=== PATIENT | male | born 1955 | race Caucasian/White ===

== ENCOUNTER 2016-06-16 18:49 | Emergency (ER) | payer OTHER ==
[2016-06-16] MEDS ORDERED: NORVASC PO STA (19:10)
[2016-06-16] MEDS ORDERED: LOPRESSOR PO STA (19:11)
[2016-06-16 19:13] VITALS: BP 154/83; TEMP 99; BMI 34.0
[2016-06-16 19:25] LABS: BASOPHILS # (AUTO) 0.1 K/uL (0-0.2); BASOPHILS % (AUTO) 0.7 % (0.0-3.0); EOSINOPHILS # (AUTO) 0.3 K/ul (0.0-0.7); EOSINOPHILS % (AUTO) 2.8 % (0.0-7.0); HEMATOCRIT 50.1 % (42.0-52.0); HEMOGLOBIN 17.5 g/dl (14.0-18.0); IMMATURE GRANULOCYTE % (AUTO) 0.7 % (0.0-5.0); LYMPHOCYTES # (AUTO) 2.3 K/uL (0.60-3.4); LYMPHOCYTES % (AUTO) 23.4 (10.0-50.0); MEAN CORPUSCULAR HEMOGLOBIN 29.2 pg (27.0-31.0); MEAN CORPUSCULAR HGB CONC 34.9 (31.8-35.4); MEAN CORPUSCULAR VOLUME 83.6 fl (80.0-94.0); MONOCYTES # (AUTO) 0.8 K/uL (0.4-2.0); MONOCYTES % (AUTO) 7.7 (0-10); NEUTROPHILS # (AUTO) 6.3 K/ul (2.0-6.9); NEUTROPHILS % (AUTO) 64.7; PLATELET COUNT 263 10^3/uL (140-440); RED BLOOD COUNT 5.99 10^6/ul (4.70-6.10); WHITE BLOOD COUNT 9.76 K/ul (4.2-10.2)
[2016-06-16 19:57] LABS: ALANINE AMINOTRANSFERASE 31 U/L (12-78); ALBUMIN 4.1 g/dL (3.4-5.0); ALBUMIN/GLOBULIN RATIO 1.32; ALKALINE PHOSPHATASE 69 U/L (56-119); ANION GAP 16.2; ASPARTATE AMINO TRANSFERASE 21 U/L (15-37); BILIRUBIN,TOTAL 0.84 mg/dL (0.00-1.20); BLOOD UREA NITROGEN 20 mg/dL (7-18); BUN/CREATININE RATIO 21.73; CALCIUM 9.4 mg/dL (8.2-10.2); CARBON DIOXIDE 25 mmol/L (23-31); CHLORIDE 101 mmol/L (98-107); CREATINE KINASE 181 U/L; CREATININE 0.92 mg/dL (0.60-1.10); GLUCOSE 152 mg/dL (82-115); POTASSIUM 4.2 mmol/L (3.5-5.1); SODIUM 138 mmol/L (136-145); TOTAL PROTEIN 7.2 g/dL (5.8-8.1)
--- NOTE | 2016-06-16 20:09 | ED.PDOC ---
General ED Provider: Dr. JOHN MATHUR-ER Chief Complaint: Hypertension Stated Complaint: my bp is up==dr graham called in incrdased dose but i cant pick it up till sunday--denies chest pain or mcconnell Time Seen by Physician: 18:55 Mode of Arrival: Walk-In Information Source: Patient, Family Exam Limitations: No limitations Primary Care Provider: JENNA GRAHAM Nursing and Triage Documentation Reviewed and Agree: Yes Cardiovascular Complaint Exam - Hypertension Complaint/Exam Onset/Duration: unknown Symptoms Are: Still present Timing: Constant Reported B/P Prior to Arrival: 180/110 Aggravating: Reports: None Alleviating: Reports: None Associated Signs and Symptoms: Denies: Chest pain, Vision changes, Anxiety, Recent stress, Headache, Numbness, Tingling, Weakness, Dizziness, Short of air, Swelling Related Surgical History: Reports: None Cardiac Risk Factors: Reports: Hypertension Recent Change in Medications: Yes A/V [place]: No Papilledema Present: No JVD Present: No Carotid Bruit Present: No Femoral Pulses Bounding: No Differential Diagnoses: Hypertension Quality Indicator For Non-Traumatic Chest Pain/Syncope: EKG Performed Review of Systems - Review Of Systems Constitutional: Reports: No symptoms Eyes: Reports: No symptoms Ears, Nose, Mouth, Throat: Reports: No symptoms Respiratory: Reports: No symptoms Cardiac: Reports: No symptoms GI: Reports: No symptoms : Reports: No symptoms Musculoskeletal: Reports: No symptoms Skin: Reports: No symptoms Neurological: Reports: No symptoms Endocrine: Reports: No symptoms Hematologic/Lymphatic: Reports: No symptoms All Other Systems: Reviewed and Negative Past Medical History - Past Medical History Endocrine: Reports: Unknown Cardiovascular: Reports: Hypertension Respiratory: Reports: Unknown Hematological: Reports: Unknown Gastrointestinal: Reports: Unknown Genitourinary: Reports: Unknown Neuro/Psych: Reports: Unknown Musculoskeletal: Reports: Unknown Cancer: Reports: Unknown - Surgical History General Surgical History: Reports: Unknown - Family History Family History: Reports: Unknown - Social History Smoking Status: Never smoker Hx Substance Use: No Alcohol Screening: None Physical Exam - Physical Exam Appearance: Well-appearing, No pain distress, Well-nourished Eyes: JORDY, EOMI, Conjunctiva clear ENT: Ears normal, Nose normal, Oropharynx normal Neck: Supple Respiratory: Airway patent Cardiovascular: RRR, Pulses normal, No rub, No murmur GI/: Soft, Nontender, No masses, Bowel sounds normal, No Organomegaly Musculoskeletal: Normal strength, ROM intact, No edema, No calf tenderness Skin: Warm, Dry, Normal color Neurological: Sensation intact, Motor intact, Reflexes intact, Cranial nerves intact, Alert, Oriented Psychiatric: Affect appropriate, Mood appropriate Interpretation - EKG Interpretation Time of EKG #1: 20:08 Rate: Tachy Rhythm: Sinus Ectopy: None [place]: NL ST Segment: Normal Re-Evaluation - Re-Evaluation Time of Re-Evaluation: 20:08 Status: Improved Vital Signs Stable: Yes Pain Level: 0 Appearance: NAD Lungs: Clear Skin: Warm and Dry Neuro: Alert and Oriented X3 CV: RRR Critical Care Note - Critical Care Note Total Time (mins): 0 Course - Course Hematology/Chemistry: 06/16/16 19:15 06/16/16 19:15 Orders, Labs, Meds: Lab Review 06/16/16 19:15 WBC 9.76 RBC 5.99 Hgb 17.5 Hct 50.1 MCV 83.6 MCH 29.2 MCHC 34.9 RDW Coeff of Estela 13.3 Plt Count 263 Immature Gran % (Auto) 0.7 Neut % (Auto) 64.7 Lymph % (Auto) 23.4 [place] % (Auto) 7.7 Eos % (Auto) 2.8 Baso % (Auto) 0.7 Immature Gran # (Auto) 0.1 Neut # 6.3 Lymph # 2.3 [place] # 0.8 Eos # 0.3 Baso # 0.1 Sodium 138 Potassium 4.2 Chloride 101 Carbon Dioxide 25 Anion Gap 16.2 BUN 20 H Creatinine 0.92 Estimated GFR (MDRD) 84.00 BUN/Creatinine Ratio 21.73 Glucose 152 H Calcium 9.4 Total Bilirubin 0.84 AST 21 ALT 31 Alkaline Phosphatase 69 Total Creatine Kinase 181 CK-MB (CK-2) 3.0 CK-MB (CK-2) % 1.48825 Troponin I < 0.0100 Total Protein 7.2 Albumin 4.1 Globulin 3.1 Albumin/Globulin Ratio 1.32 TSH 1.622 Free T4 1.08 Orders Category Date Time Status EKG-(ED ONLY) Stat CARDIO 06/16/16 19:09 Completed CBC W/ AUTO DIFF Stat LAB 06/16/16 19:15 Completed COMPREHENSIVE METABOLIC PANEL Stat LAB 06/16/16 19:15 Completed CREATINE KINASE Stat LAB 06/16/16 19:15 Completed FREE T4 (FREE THYROXINE) Stat LAB 06/16/16 19:15 Completed TROPONIN I Stat LAB 06/16/16 19:15 Completed TSH [THYROID STIMULATING HORMONE] Stat LAB 06/16/16 19:15 Completed Amlodipine Besylate [Norvasc] MEDS 06/16/16 19:10 Discontinued 5 mg PO ONCE STA Metoprolol Tartrate [Lopressor] MEDS 06/16/16 19:11 Discontinued 50 mg PO ONCE STA Medications Discontinued Medications Generic Name Dose Route Start Last Admin Trade Name Freq PRN Reason Stop Dose Admin Amlodipine Besylate 5 mg 06/16/16 19:10 06/16/16 19:16 Norvasc PO 06/16/16 19:11 5 mg ONCE STA Administration Metoprolol Tartrate 50 mg 06/16/16 19:11 06/16/16 19:16 Lopressor PO 06/16/16 19:12 50 mg ONCE STA Administration Vital Signs: Temp Pulse Resp BP Pulse Ox 06/16/16 18:55 99.0 F 99 H 16 154/83 H 95 ANH Risk Score ANH Risk Score: Risk Score Odds of by 30D 0 0.1 (0.1-0.2) 1 0.3 (0.2-0.3) 2 0.4 (0.3-0.5) 3 0.7 (0.6-0.9) 4 1.2 (1.0-1.5) 5 2.2 (1.9-2.6) 6 3.0 (2.5-3.6) 7 4.8 (3.8-6.1) Departure - Departure Time of Disposition: 20:09 Disposition: HOME SELF-CARE Discharge Problem: HTN (hypertension) Qualifiers: Hypertension type: essential hypertension Qualifier Code: (I10) Essential ( primary) hypertension Instructions: Chronic Hypertension (ED) Condition: Good Pt referred to PMD for follow-up: Yes Additional Instructions: add lopressor 25mg bid #30--monitor bp--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
== END 2016-06-16 20:16 | disposition home or self-care (01) ==
LOC: ED 18:49
DX: I10 Essential (primary) hypertension (principal); Z79.899 Other long term (current) drug therapy
CPT/HCPCS: 36415; 80053; 82550; 82553; 84439; 84443; 84484; 85025; 93005; 93010; 99284

== ENCOUNTER 2016-08-17 07:14 | Outpatient (CLI) ==
[2012-11-06 08:45] VITALS: TEMP 97.3
[2016-08-17 07:34] LABS: HEMOGLOBIN 16.6 g/dl (14.0-18.0); MEAN CORPUSCULAR HEMOGLOBIN 29.3 pg (27.0-31.0); MEAN CORPUSCULAR HGB CONC 33.9 (31.8-35.4); MEAN CORPUSCULAR VOLUME 86.4 fl (80.0-94.0); RED BLOOD COUNT 5.67 10^6/ul (4.70-6.10); WHITE BLOOD COUNT 7.57 K/ul (4.2-10.2)
[2016-08-17 07:53] LABS: ALBUMIN 3.9 g/dL (3.4-5.0); BILIRUBIN,DIRECT 0.17 mg/dL (0.00-0.30); BILIRUBIN,TOTAL 0.49 mg/dL (0.00-1.20)
[2016-08-18 06:59] LABS: TESTOSTERONE 542 ng/dL (348-1197)
== END 2016-08-17 07:15 | disposition home or self-care (01) ==
LOC: LAB 07:14
PROVIDERS: ATTEND Physician Assistant Medical
DX: E29.1 Testicular hypofunction (principal)
CPT/HCPCS: 36415; 80076; 84403; 85027

== ENCOUNTER 2017-03-02 10:57 | Outpatient (CLI) ==
[2012-11-06 08:45] VITALS: TEMP 97.3
[2017-03-02 11:13] LABS: HEMOGLOBIN 16.5 g/dl (14.0-18.0); MEAN CORPUSCULAR HEMOGLOBIN 26.5 pg (27.0-31.0); MEAN CORPUSCULAR VOLUME 80.3 fl (80.0-94.0); RED BLOOD COUNT 6.23 10^6/ul (4.70-6.10); WHITE BLOOD COUNT 6.79 K/ul (4.2-10.2)
[2017-03-02 11:33] LABS: ALBUMIN 3.5 g/dL (3.4-5.0); BILIRUBIN,DIRECT 0.3 mg/dL (0.00-0.30); BILIRUBIN,TOTAL 0.89 mg/dL (0.00-1.20); TOTAL PROTEIN 6.4 g/dL (5.8-8.1)
[2017-03-03 05:11] LABS: TESTOSTERONE 787 ng/dL (264-916)
== END 2017-03-02 10:58 | disposition home or self-care (01) ==
LOC: LAB 10:57
PROVIDERS: ATTEND Physician Assistant Medical
DX: E29.1 Testicular hypofunction (principal)
CPT/HCPCS: 36415; 80076; 84403; 85027

== ENCOUNTER 2017-08-31 13:13 | Outpatient (CLI) ==
[2012-11-06 08:45] VITALS: TEMP 97.3
== END 2017-08-31 13:14 | disposition home or self-care (01) ==
LOC: LAB 13:13
PROVIDERS: ATTEND Physician Assistant Medical
DX: E29.1 Testicular hypofunction (principal)
CPT/HCPCS: 36415; 82670; 84403

== ENCOUNTER 2017-09-14 17:46 | Observation (INO) ==
[2017-09-14 17:58] VITALS: BMI 33.9
[2017-09-14] MEDS ORDERED: ASPIRIN EC PO STA (18:11)
[2017-09-14] MEDS ORDERED: ASPIRIN CHEWABLE ONE (18:20)
--- NOTE | 2017-09-14 18:31 | ED.PDOC ---
General Stated Complaint: chest pain Time Seen by Physician: 17:45 Mode of Arrival: Walk-In Information Source: Patient Exam Limitations: No limitations Nursing and Triage Documentation Reviewed and Agree: Yes Reviewed sepsis parameters & appropriate labs ordered?: Yes System Inflammatory Response Syndrome: Not Applicable System Inflammatory Response Syndrome: Not Applicable <CHANO MORRIS - Last Filed: 09/14/17 18:32> Stated Complaint: sudden onset of Left chest pain 3 days ago, Describes it at aching. Waxes and wanes. rates it at 4-6/10 not exertional. No associated nausea , vomiting or Diaphoresis. Has some back pain at the left shoulder. Chest pain is now gone. But still has Sholder pain. Had a normal stress test few years ago. <DONNIE LUNA - Last Filed: 09/14/17 20:48> ED Provider: Dr. DONNIE LUNA Chief Complaint: Chest Pain Primary Care Provider: JENNA PEGUERO Sepsis Protocol: For patient's 13 years and over: Temp is 96.8 and below OR 101 and greater Pulse >90 BPM Resp >20/minute Acutely Altered Mental Status Are patient's symptoms suggestive of a new infection, such as: -Pneumonia -Skin, Soft Tissue -Endocarditis -UTI -Bone, Joint Infection -Implantable Device -Acute Abdominal Infection -Wound Infection -Meningitis -Blood Stream Catheter Infection -Unknown Cardiovascular Complaint Exam - Chest Pain Complaint/Exam Onset: Gradual Duration: 3 days Symptoms Are: Resolved Timing: Intermittent Length of Chest Pain Episodes: 30 min Initial Severity: Mild Current Severity: Mild Location: Reports: Discrete, Midsternal, Left anterior Pain Radiates: Reports: Back, Left shoulder, Neck Character: Reports: Dull, Aching, Squeezing, Sharp Aggravating: Reports: None Alleviating: Reports: None Associated Signs and Symptoms: Denies: Diaphoresis, Nausea, Vomiting, Fever, Palpitations, Cough, Hemoptysis, Back pain, Abdominal pain, Dizziness, Short of air, Calf pain, Calf swelling Related History: Reports: Similar episode Related Surgical History: Reports: None History of Healthcare-Acquired Pneumonia: Reports: No AMI/ACS Risk Factors: Reports: Diabetes, Obesity, Hypertension TAD Risk Factors: Reports: Hypertension Pulmonary Embolism Risk Factors: Reports: None Prior Care for this Complaint: No Recent Stress Test: No Recent Echo/LV Function: No JVD Present: No Subcutaneous Emphysema Present: No Diminshed Breath Sounds: No Reproducible Chest Wall Pain: No Bilateral Pulses Present: No If Risk Factors for AMI/ACS Consider: EKG, Cardiac Enzymes Quality Indicators For Acute MN or Cardiac Chest Pain: EKG in 10min. <CHANO MORRIS - Last Filed: 09/14/17 18:32> Review of Systems - Review Of Systems Constitutional: Reports: No symptoms Eyes: Reports: No symptoms Ears, Nose, Mouth, Throat: Reports: No symptoms Respiratory: Reports: Cough Cardiac: Reports: No symptoms GI: Reports: No symptoms : Reports: No symptoms Musculoskeletal: Reports: No symptoms Skin: Reports: No symptoms Neurological: Reports: No symptoms Endocrine: Reports: No symptoms Hematologic/Lymphatic: Reports: No symptoms All Other Systems: Reviewed and Negative <CHANO MORRIS - Last Filed: 09/14/17 18:32> Past Medical History - Past Medical History Previously Healthy: Yes Endocrine: Reports: Unknown Cardiovascular: Reports: Hypertension Respiratory: Reports: Unknown Hematological: Reports: Unknown Gastrointestinal: Reports: Unknown Genitourinary: Reports: Unknown Neuro/Psych: Reports: Unknown Musculoskeletal: Reports: Unknown Cancer: Reports: Unknown - Surgical History General Surgical History: Reports: Unknown - Family History Family History: Reports: Unknown - Social History Smoking Status: Never smoker Hx Substance Use: No Alcohol Screening: None <CHANO MORRIS - Last Filed: 09/14/17 18:32> Physical Exam - Physical Exam Appearance: Well-appearing, No pain distress, Well-nourished Eyes: JORDY, EOMI, Conjunctiva clear ENT: Ears normal, Nose normal, Oropharynx normal Respiratory: Airway patent, Breath sounds clear, Breath sounds equal, Respirations nonlabored Cardiovascular: RRR, Pulses normal, No rub, No murmur GI/: Soft, Nontender, No masses, Bowel sounds normal, No Organomegaly Musculoskeletal: Normal strength, ROM intact, No edema, No calf tenderness Skin: Warm, Dry, Normal color Neurological: Sensation intact, Motor intact, Reflexes intact, Cranial nerves intact, Alert, Oriented Psychiatric: Affect appropriate, Mood appropriate <CHANO MORRIS - Last Filed: 09/14/17 18:32> - Physical Exam Pain Distress: Mild <DONNIE LUNA - Last Filed: 09/14/17 20:48> Interpretation - Rehabilitation Nurse Rate: Normal Rhythm: Sinus Ectopy: None - EKG Interpretation Rate: Normal Rhythm: Sinus Ectopy: None (lvh) <CHANO MORRIS - Last Filed: 09/14/17 18:32> - Radiology Interpretation Radiology Interpretation By: ED Physician Radiology Results: Negative Exam Interpreted: CXR <DONNIE LUNA - Last Filed: 09/14/17 20:48> Physician Notification - Case Discussed Physician Notified: [email or web address] Time of Notification: 18:34 <CHANO MORRIS - Last Filed: 09/14/17 18:32> - Case Discussed Physician Notified: Mike Time of Notification: 20:31 (Admit to observation. ) <DONNIE LUNA - Last Filed: 09/14/17 20:48> Critical Care Note - Critical Care Note Total Time (mins): 0 <CHANO MORRIS - Last Filed: 09/14/17 18:32> Course - Course Hematology/Chemistry: 09/14/17 18:36 09/14/17 18:35 <DONNIE LUNA - Last Filed: 09/14/17 20:48> - Course Orders, Labs, Meds: Lab Review 09/14/17 09/14/17 09/14/17 18:35 18:36 18:36 WBC 8.95 RBC 5.83 Hgb 15.5 Hct 47.4 MCV 81.3 MCH 26.6 L MCHC 32.7 RDW Coeff of Estela 13.7 Plt Count 247 Immature Gran % (Auto) 0.4 Neut % (Auto) 60.2 Lymph % (Auto) 27.3 [place] % (Auto) 8.2 Eos % (Auto) 3.0 Baso % (Auto) 0.9 Immature Gran # (Auto) 0.0 Neut # (Auto) 5.4 Lymph # (Auto) 2.4 [place] # (Auto) 0.7 Eos # (Auto) 0.3 Baso # (Auto) 0.1 PT INR APTT Sodium 138 Potassium 4.4 Chloride 104 Carbon Dioxide 22 L Anion Gap 16.4 BUN 14 Creatinine 0.93 Estimated GFR (MDRD) 83.00 BUN/Creatinine Ratio 15.05 Glucose 167 H Calcium 8.8 Total Bilirubin 0.4 AST 13 L ALT 14 Alkaline Phosphatase 52 L Total Creatine Kinase CK-MB (CK-2) CK-MB (CK-2) % Troponin I < 0.0100 Total Protein 6.9 Albumin 3.6 Globulin 3.3 Albumin/Globulin Ratio 1.09 09/14/17 09/14/17 18:36 18:36 WBC RBC Hgb Hct MCV MCH MCHC RDW Coeff of Estela Plt Count Immature Gran % (Auto) Neut % (Auto) Lymph % (Auto) [place] % (Auto) Eos % (Auto) Baso % (Auto) Immature Gran # (Auto) Neut # (Auto) Lymph # (Auto) [place] # (Auto) Eos # (Auto) Baso # (Auto) PT 9.0 L INR 0.90 APTT 23.6 L Sodium Potassium Chloride Carbon Dioxide Anion Gap BUN Creatinine Estimated GFR (MDRD) BUN/Creatinine Ratio Glucose Calcium Total Bilirubin AST ALT Alkaline Phosphatase Total Creatine Kinase 165 CK-MB (CK-2) 3.6 CK-MB (CK-2) % 2.79451 Troponin I Total Protein Albumin Globulin Albumin/Globulin Ratio Orders Category Date Time Status ADMIT OBSERVATION [PLACE PATIENT OBSERVATION] .TO ADMISSION 09/14/17 20:26 Active MEDSURG (MONITORED BED) EKG-(ED ONLY) Stat CARDIO 09/14/17 18:09 Completed EKG-(ED ONLY) Stat CARDIO 09/15/17 06:00 Ordered ACTIVITY .Up ad Patricia CARE 09/14/17 20:05 Active BLOOD GLUCOSE MONITORING 0630,1100,1700,2100 CARE 09/14/17 20:32 Active GIVE HS SNACK 2100 CARE 09/14/17 20:33 Active INTAKE & OUTPUT Q8HR CARE 09/14/17 20:05 Active INTAKE & OUTPUT Q8HR CARE 09/14/17 20:27 Active INTAKE & OUTPUT Q8HR CARE 09/14/17 20:32 Active TELEMETRY MONITORING TELE CARE 09/14/17 20:27 Active VITAL SIGNS Q4HR CARE 09/14/17 20:05 Active ADA 1800 SARA. DIET DIETARY 09/14/17 Breakfast Ordered HS SNACK DIETARY 09/14/17 Dinner Ordered ED IV/MEDIPORT/POWERPORT .ONCE EMERGENCY 09/14/17 18:09 Active BASIC METABOLIC PANEL DAILY@0600 LAB 09/15/17 06:00 Ordered BASIC METABOLIC PANEL DAILY@0600 LAB 09/16/17 06:00 Ordered CBC W/ AUTO DIFF DAILY@0600 LAB 09/15/17 06:00 Ordered CBC W/ AUTO DIFF DAILY@0600 LAB 09/16/17 06:00 Ordered CBC W/ AUTO DIFF Stat LAB 09/14/17 18:36 Completed COMPREHENSIVE METABOLIC PANEL Stat LAB 09/14/17 18:35 Completed CREATINE KINASE Stat LAB 09/14/17 18:36 Completed PARTIAL THROMBOPLASTIN TIME Stat LAB 09/14/17 18:36 Completed PT WITH INR Stat LAB 09/14/17 18:36 Completed TROPONIN I Q8H LAB 09/15/17 02:30 Ordered TROPONIN I Q8H LAB 09/15/17 10:30 Ordered TROPONIN I Stat LAB 09/14/17 18:36 Completed 0.9 % Sodium Chloride [Saline Flush] MEDS 09/14/17 18:08 Ordered 1 syr IVF PRN PRN Amlodipine/Valsartan [Exforge 5-320 mg Tablet] MEDS 09/15/17 09:00 Ordered 1 each PO DAILY Anastrozole [Arimidex] MEDS 09/14/17 20:30 Ordered 1 mg PO DIRECTED Aspirin [Aspirin Chewable] MEDS 09/14/17 18:20 Discontinued 243 mg .ROUTE .STK-MED ONE Aspirin [Aspirin EC] MEDS 09/14/17 18:11 Discontinued 243 mg PO ONCE STA Aspirin [Aspirin EC] MEDS 09/15/17 08:00 Ordered 81 mg PO DAILYWM Dapagliflozin Propanediol [Farxiga] MEDS 09/15/17 09:00 Ordered 10 mg PO DAILY Enoxaparin Sodium [Lovenox] MEDS 09/15/17 09:00 Ordered 40 mg SUBCUT DAILY Ketorolac Tromethamine [Toradol] MEDS 09/14/17 20:18 Ordered 15 mg IVP Q6H PRN Ketorolac Tromethamine [Toradol] MEDS 09/14/17 20:18 Discontinued 30 mg IVP ONCE STA Metformin HCl [Metformin HCl] MEDS 09/14/17 21:00 Ordered 1,000 mg PO BID Metoprolol Tartrate [Lopressor] MEDS 09/15/17 09:00 Ordered 25 mg PO DAILY Ondansetron HCl/Pf [Zofran 4 mg/2 ml] MEDS 09/14/17 20:18 Ordered 4 mg IVP Q6H PRN Simvastatin [Zocor] MEDS 09/14/17 21:00 Ordered 20 mg PO BEDTIME Testosterone Cypionate [Testosterone Cypionate] MEDS 09/14/17 20:30 Ordered 200 mg IM DIRECTED RESUSCITATION STATUS Routine OTHERS 09/14/17 20:04 Ordered CHEST, 2 VIEWS PA & LAT Stat RADS 09/14/17 18:09 Ordered Medications Generic Name Dose Route Start Last Admin Trade Name Opal PRN Reason Stop Dose Admin Anastrozole 1 mg 09/14/17 20:30 Arimidex PO DIRECTED NAHID Aspirin 81 mg 09/15/17 08:00 Aspirin Ec PO DAILYWM [facility] Enoxaparin Sodium 40 mg 09/15/17 09:00 Lovenox SUBCUT DAILY NAHID Ketorolac Tromethamine 15 mg 09/14/17 20:18 Toradol IVP Q6H PRN back pain Metoprolol Tartrate 25 mg 09/15/17 09:00 Lopressor PO DAILY [facility] Non-Formulary Medication 1 each 09/15/17 09:00 Amlodipine/Valsartan [Exforge 5-320 Mg Tablet] PO DAILY [facility] Non-Formulary Medication 1,000 mg 09/14/17 21:00 Metformin Hcl [Metformin Hcl] PO BID [facility] Non-Formulary Medication 20 mg 09/14/17 21:00 Simvastatin [Zocor] PO BEDTIME NAHID Non-Formulary Medication 200 mg 09/14/17 20:30 Testosterone Cypionate [Testosterone Cypionate] IM DIRECTED [facility] Non-Formulary Medication 10 mg 09/15/17 09:00 Dapagliflozin Propanediol [Farxiga] PO DAILY [facility] Ondansetron HCl 4 mg 09/14/17 20:18 Zofran 4 Mg/2 Ml IVP Q6H PRN Nausea / Vomiting Sodium Chloride 1 syr 09/14/17 18:08 09/14/17 20:44 Saline Flush IVF 1 syr PRN PRN Administration To flush IV Discontinued Medications Generic Name Dose Route Start Last Admin Trade Name Freq PRN Reason Stop Dose Admin Aspirin 243 mg 09/14/17 18:11 09/14/17 18:24 Aspirin Ec PO 09/14/17 18:12 Not Given ONCE STA Ketorolac Tromethamine 30 mg 09/14/17 20:18 09/14/17 20:41 Toradol IVP 09/14/17 20:19 30 mg ONCE STA Administration Vital Signs: Temp Pulse Resp BP Pulse Ox 09/14/17 17:47 97.9 F 72 20 194/93 H 96 ANH Risk Score Age >/= 65: No >/= 3 CAD Risk Factors: Yes Known CAD (Stenosis >/= 50%): No ASA Use in Past 7 Days: Yes Severe Angina (>/= 2 episodes in 24 hours): No EKG ST Changes >/= 0.5mm: No ANH Total Score: 2 <CHANO MORRIS - Last Filed: 09/14/17 18:32> ANH Risk Score: Risk Score Odds of by 30D 0 0.1 (0.1-0.2) 1 0.3 (0.2-0.3) 2 0.4 (0.3-0.5) 3 0.7 (0.6-0.9) 4 1.2 (1.0-1.5) 5 2.2 (1.9-2.6) 6 3.0 (2.5-3.6) 7 4.8 (3.8-6.1) Departure - Departure Pt referred to PMD for follow-up: Yes IPMP verified?: No Disposition Discussed With: Patient, Family <CHANO MORRIS - Last Filed: 09/14/17 18:32> - Departure Time of Disposition: 20:31 Pt referred to PMD for follow-up: No <DONNIE LUNA - Last Filed: 09/14/17 20:48> - Departure Disposition: ADMITTED INPATIENT Discharge Problem: Chest pain Chest pain Qualifiers: Chest pain type: unspecified Qualified Code(s): R07.9 - Chest pain, unspecified Condition: Good Allergies/Adverse Reactions: Allergies No Known Allergies Allergy (Verified 09/14/17 17:53) Home Medications: Ambulatory Orders Amlodipine/Valsartan [Exforge 5-320 mg Tablet] 1 each PO DAILY 11/06/12 Metformin HCl 1,000 mg PO BID 11/06/12 Dapagliflozin Propanediol [Farxiga] 10 mg PO DAILY 12/09/15 Aspirin [Aspirin EC] 81 mg PO DAILYWM 04/03/16 Anastrozole 1 mg PO DIRECTED 09/14/17 Metoprolol Tartrate [Lopressor] 25 mg PO DAILY 09/14/17 Simvastatin [Zocor] 20 mg PO BEDTIME 09/14/17 Testosterone Cypionate 200 mg IM DIRECTED 09/14/17
[2017-09-14] MEDS ORDERED: TORADOL IVP STA (20:18)
[2017-09-14] MEDS ORDERED: ZOFRAN 4 MG/2 ML IVP PRN (20:18)
[2017-09-14] MEDS ORDERED: POTASSIUM CHLORIDE PREMIX RUN 10 MEQ in PREMIX 100 ML WATER 1 BAG IV STA (20:23)
[2017-09-14] MEDS ORDERED: TESTOSTERONE CYPIONATE 200 MG IM SCH (20:30)
[2017-09-14] MEDS ORDERED: SODIUM CHLORIDE 1,000 ML IV SCH (20:30)
[2017-09-14] MEDS ORDERED: NON-FORMULARY MEDICATION (Simvastatin [Zocor] 20 MG) PO SCH (21:00)
[2017-09-14] MEDS ORDERED: NON-FORMULARY MEDICATION (Metformin Hcl [Metformin Hcl] 1,000 MG) PO SCH (21:00)
--- NOTE | 2017-09-14 21:16 | DI ---
EXAM: Chest two view. HISTORY: Pain COMPARISON: 02/03/2008, 08/11/2009 FINDINGS: The cardiac silhouette appears normal. There is some central perihilar peribronchial thic kening No focal consolidation or pneumonia is seen. No pleural fluid is seen. Skeletal structures u nremarkable. IMPRESSIONS: Cardiac silhouette normal size without pulmonary edema or pleural fluid. Minimal peribronchial thickening hilar areas , possible mild bronchitis. Please correlate clinicall y.
[2017-09-15] MEDS ORDERED: TORADOL IVP PRN (07:30)
[2017-09-15] MEDS ORDERED: AMLODIPINE PO SCH (09:00)
[2017-09-15] MEDS ORDERED: VALSARTAN PO SCH (09:00)
[2017-09-15] MEDS: DIOVAN PO SCH (09:19)
[2017-09-15] MEDS: LOPRESSOR PO SCH (09:19)
[2017-09-15] MEDS: ASPIRIN EC PO SCH (09:19)
[2017-09-15] MEDS: NORVASC PO SCH (09:20)
[2017-09-15] MEDS: GLUCOPHAGE PO SCH ×2 (09:20→17:34)
[2017-09-15] MEDS: LOVENOX SUBCUT SCH (09:21)
[2017-09-15] MEDS: NON-FORMULARY MEDICATION (Dapagliflozin Propanediol [Farxiga] 10 MG) PO SCH (13:15)
[2017-09-15] MEDS ORDERED: ZOCOR PO SCH (21:00)
[2017-09-16] MEDS: DIOVAN PO SCH (08:54)
[2017-09-16] MEDS: NON-FORMULARY MEDICATION (Dapagliflozin Propanediol [Farxiga] 10 MG) PO SCH (08:54)
[2017-09-16] MEDS: LOPRESSOR PO SCH (08:54)
[2017-09-16] MEDS: ASPIRIN EC PO SCH (08:54)
[2017-09-16] MEDS: NORVASC PO SCH (08:55)
[2017-09-16] MEDS: LOVENOX SUBCUT SCH (08:55)
[2017-09-16] MEDS: GLUCOPHAGE PO SCH (08:55)
[2017-09-16 10:37] VITALS: BP 126/70; TEMP 98.3
[2017-09-17] MEDS ORDERED: ARIMIDEX PO SCH (09:00)
--- NOTE | 2017-09-17 10:00 | STRESSECHO ---
Date of Test: 09/16/17 Reason for Exam: CHEST PAIN, LEFT SHOULDER SORENESS Ordering Physician: DR. JENNA PEGUERO Current Medications: METFORMIN, AMLODIPINE/VALSARTAN, FARXIGA, ASA, ANASTROZOLE , SIMVASTATIN, LOPRESSOR Physical Findings: S1, S2, NO S3 Left arm BP 140/90 Right arm BP 168/104 Target Heart Rate: 135/159 S-T SEGMENT STAGE MPH/GRADE HEART RATE BPM BLOOD PRESSURE MMHG RHYTHM +/- ELEVATION DEPRESSION SYMPTOMS,COMMENTS At Rest 65 140/90 SR X NONE 1 1.7/10% 95 142/80 SR X NONE 2 2.5/12% 200/100 3 3.4/14% 4 4.2/16% 5 5.0/18% Immediately after 135 SR X SHORT OF AIR Durations of Exercise: 6:39 Maximum Heart Rate Reached: 135 Reason for Termination: SHORT OF AIR 6 MINUTES POST EXERCISE: HR 74 BPM, BP 138/86 MMHG, NO COMMENTS INTERPRETATION: 96% OXYGEN SATURATION WITH EXERCISE ON ROOM AIR METS 9.0 1. NO EVIDENCE OF ISCHEMIA BY ST-T WAVE 2. NO CHEST PAIN OR CHEST DISCOMFORT OF LEFT SHOULDER PAIN 3. OCCASIONAL PVC'S 4. BLOOD PRESSURE RESPONSE: HYPERTENSION WITH EXERCISE NORMAL LEFT VENTRICULAR CONTRACTILITY--RESTING AND POST EXERCISE MTDD
--- NOTE | 2017-09-17 10:02 | ECHOSTRESS ---
Date of Exam: 09/16/17 Ordering Physician: DR. JENNA PEGUERO Reason for Echo: CHEST PAIN, STRESS TEST--NO ISCHEMIA M-Mode Normal Adult Results LV Dimensions Normal Adult Results AoV Opening excursions >1.6 LVEDD-base- 3.5-5.8 Ao root dimensions 2.0-3.7 LVESD-base- 3.1-4.6 L. Atrium dimensions 1.9-3.8 Post. Wall thickness 0.8-1.1 IV septum (thickness) 0.7-1.2 Post. Wall excursion 0.72-1.3 Septal motion Systolic motion R. Ventricular cavity 1.5-2.0 LVEF 60% Paradoxical septal wall motion 2-D: NORMAL LEFT VENTRICULAR CONTRACTILITY--RESTING AND POST EXERCISE M-MODE: MV: AV: TV: PV: CHAMBER SIZE: WALL MOTION: NORMAL LEFT VENTRICULAR CONTRACTILITY--RESTING AND POST EXERCISE PERICARDIUM: INTERPRETATION: 1. NORMAL LEFT VENTRICULAR CONTRACTILITY--RESTING AND POST EXERCISE MTDD
--- NOTE | 2017-09-18 10:34 | ECHO2D ---
Date of Exam: 09/16/17 Ordering Physician: DR. JENNA PEGUERO Room #: [id number] Reason for Echo: CHEST PAIN M-Mode Normal Adult Results LV Dimensions Normal Adult Results AoV Opening excursions >1.6 >1.6 LVEDD-base- 3.5-5.8 5.8 Ao root dimensions 2.0-3.7 4.2 LVESD-base- 3.1-4.6 L. Atrium dimensions 1.9-3.8 4.3 Post. Wall thickness 0.8-1.1 1.4 IV septum (thickness) 0.7-1.2 1.4 Post. Wall excursion 0.72-1.3 NORMAL Septal motion NORMAL Systolic motion R. Ventricular cavity 1.5-2.0 NORMAL LVEF 60% 50% Paradoxical septal wall motion NORMAL 2-D : DILATED AORTIC ROOT, ENLARGED LEFT ATRIAL AND LEFT VENTRICULAR CONTRACTILITY, NORMAL VALVES, NO EFFUSION, NO THROMBUS M-MODE: MV: NORMAL AV: NORMAL TV: NORMAL PV: CHAMBER SIZE: ENLARGED LEFT ATRIAL AND LEFT VENTRICLE CAVITIES WALL MOTION: NORMAL PERICARDIUM: NORMAL INTERPRETATION: 1. LEFT VENTRICULAR HYPERTROPHY WITH ENLARGED LEFT ATRIAL CAVITY 2. DILATED AORTIC ROOT 3. ENLARGED LEFT VENTRICULAR CAVITY 4. STIFF LEFT VENTRICLE WITH EJECTION FRACTION 50% MTDD
--- NOTE | 2017-09-21 13:11 | PN ---
DATE OF SERVICE: 09/16/17 SUBJECTIVE: 62-year-old white male seen in Room 117 after he was admitted through the emergency room with left shoulder and left-sided chest pain of 3 days duration. The patient's neice recently of cancer at young age and he has been going through the process with a lot of anxiety. Chest pain is nonexertional , it is steady and is going through the scapular area. The patient denies any shortness of breath or sweating with it. The pain is more or less constant. The patient was given Toradol IV that has helped his pain. The patient has a history of BMI more than 30, diabetes mellitus, hypertension, dyslipidemia, sedentary lifestyle. PHYSICAL EXAMINATION: HEENT: Head normocephalic, atraumatic. Eyes: Extraocular muscles are intact. Pupils are equal, round and reactive to light and accommodation. Ears: No lesions. Nose appeared normal. Throat: No exudate or erythema. NECK: Supple. No JVD, no carotid bruit. No lymphadenopathy or thyromegaly. LUNGS: Clear to auscultation. Percussion note normal. Chest symmetrical. HEART: S1, S2, no S3. No murmurs. No cyanosis or clubbing. No ascites. Pulses: Dorsalis pedis and posterior tibial pulses +1 to +2 both sides. ABDOMEN: Soft. Nontender. Bowel sounds active. No CVA tenderness. No mass felt. EXTREMITIES: No edema. Full range of motion of all extremities, equal. NEUROLOGIC: Oriented to time, place and person. No focal deficit. Cranial nerves II through XII are grossly intact. No headache, no double vision or headache. SKIN: Not dry. Intact. Turgor - normal. LYMPHATIC: No palpable lymph nodes/no lymphedema. MUSCULOSKELETAL: Normal joints with no swelling. Muscle tone is normal. LABS: EKG sinus rhythm. No acute changes. Cardiac markers are negative for any acute myocardial event. ASSESSMENT: 1. CHEST PAIN, SEEMS TO BE NONCARDIAC WITH MULTIPLE CAD RISK FACTORS. PLAN: 1. Will do echo and stress echo in the morning. 2. Will monitor his heart problem. 3. Angina and coronary insufficiency all discussed with his symptoms. 4. The patient is strongly advised to lose weight. Weight loss ADA diet discussed. TIME SPENT: More than 30 minutes. Plan and coordination of the patient's care discussed in the presence of nurse. JAROCHO
--- NOTE | 2017-09-21 13:17 | PN ---
DATE OF SERVICE: 09/15/17 SUBJECTIVE: The patient was hospitalized with left shoulder pain, left upper part chest pain going through to the back. The patient's pain practically has subsided. This morning his is present in the room. REVIEW OF SYSTEMS: CONSTITUTIONAL: No night sweats. No fatigue, malaise, lethargy. No fever or chills. HEENT: Eyes: No visual changes. No eye pain. No eye discharge. ENT: No runny nose. No epistaxis. No sinus pain. No sore throat. No odynophagia. No congestion. RESPIRATORY: No cough, no congestion. No hemoptysis. No shortness of breath. CARDIOVASCULAR: No angina symptoms. No CHF symptoms. No atypical chest pain for CAD. No palpitations. No orthopnea. GASTROINTESTINAL: No abdominal pain. No nausea or vomiting. No diarrhea or constipation. No hematemesis. No hematochezia. GENITOURINARY: No urgency. No frequency. No dysuria. No hematuria. No obstructive symptoms. No discharge. No pain. No significant abnormal bleeding. MUSCULOSKELETAL: No musculoskeletal pain; no joint swelling. NEUROLOGICAL: No headache. No neck pain. No syncope. No seizures. No dizziness. PSYCHIATRIC: Not anxious. No depression. No suicidal thoughts. No homicidal thoughts. SKIN: No rash. No lesions. No wounds. ENDOCRINE: No unexplained weight loss. No weight gain. HEMATOLOGIC/LYMPHATIC: No anemia. No purpura. No petechiae. No prolonged or excessive bleeding. No palpable lymph nodes. PHYSICAL EXAMINATION: GENERAL: The patient is oriented to time, place and person. VITAL SIGNS: Temperature 97.7, pulse 70, respiratory rate 15, BP 140/78. HEENT: Head normocephalic, atraumatic. Eyes: Extraocular muscles are intact. Pupils are equal, round and reactive to light and accommodation. Ears: No lesions. Nose appeared normal. Throat: No exudate or erythema. NECK: Supple. No JVD, no carotid bruit. No lymphadenopathy or thyromegaly. LUNGS: Clear to auscultation. Percussion note normal. Chest symmetrical. HEART: S1, S2, no S3. No murmurs. No cyanosis or clubbing. No ascites. Pulses: Dorsalis pedis and posterior tibial pulses +1 to +2 both sides. ABDOMEN: Soft. Nontender. Bowel sounds active. No CVA tenderness. No mass felt. EXTREMITIES: No edema. Full range of motion of all extremities, equal. NEUROLOGIC: No focal deficit. Cranial nerves II through XII are grossly intact. No headache, no double vision or headache. SKIN: Not dry. Intact. Turgor - normal. LYMPHATIC: No palpable lymph nodes/no lymphedema. MUSCULOSKELETAL: Normal joints with no swelling. Muscle tone is normal. ASSESSMENT: 1. CHEST PAIN SEEMS TO BE NONCARDIAC. THE PATIENT HAS MULTIPLE CAD RISK FACTORS LIKE OBESITY, SEDENTARY LIFESTYLE, DIABETES MELLITUS, HYPERTENSION. PLAN: 1. Continue to monitor telemetry, EKG. 2. The patient is advised to be up and about. 3. Advised to lose weight. 4. Counseling for weight loss done. 5. Exercise program discussed. 6. The patient will undergo echo and stress echo in the morning. TIME SPENT: More than 30 minutes. Plan and coordination of the patient's care discussed in the presence of nurse. JAROCHO
--- NOTE | 2017-09-21 13:19 | PN ---
CODING FOR BILLING OBSERVATION - COMMERCIAL 09/14/17 LEVEL 5 09/15/17 INTERMEDIATE 09/16/17 DISCHARGE MTDD
--- NOTE | 2017-09-21 13:33 | HP ---
DATE OF SERVICE: 09/14/17 REASON FOR HOSPITALIZATION: Chest pain. HISTORY OF PRESENT ILLNESS: 62-year-old white male hospitalized with three days of chest pain, left shoulder , upper part of chest unrelated to exertion. The patient is under a lot of stress. He has multiple risk factors for coronary artery disease. The patient was hospitalized for further workup and observation. The patient did not have any PND, no orthopnea. He had no associated shortness of breath with his left shoulder, left upper part of chest pain or sweating. PAST MEDICAL HISTORY: Hypertension Dyslipidemia Diabetes mellitus Hypogonadism BMI 34 PAST SURGICAL HISTORY: Cataract removal with lens implant Herniorrhaphy Left testicle removed REVIEW OF SYSTEMS: CONSTITUTIONAL: No night sweats. No fatigue, malaise, lethargy. No fever or chills. HEENT: Eyes: No visual changes. No eye pain. No eye discharge. ENT: No runny nose. No epistaxis. No sinus pain. No sore throat. No odynophagia. No ear pain. No congestion. RESPIRATORY: No cough, no congestion. No hemoptysis. No shortness of breath. CARDIOVASCULAR: No angina symptoms. No CHF symptoms. No atypical chest pain for CAD. No palpitations. No PND. No orthopnea. GASTROINTESTINAL: No abdominal pain. No nausea or vomiting. No diarrhea or constipation. No hematemesis. No hematochezia. GENITOURINARY: No urgency. No frequency. No dysuria. No hematuria. No obstructive symptoms. No discharge. No pain. No significant abnormal bleeding. MUSCULOSKELETAL: No musculoskeletal pain. No joint swelling. No arthritis. NEUROLOGICAL: No headache. No neck pain. No syncope. No seizures. No dizziness. PSYCHIATRIC: Not anxious. No depression. No suicidal thoughts. No homicidal thoughts. SKIN: No rash. No lesions. No wounds. ENDOCRINE: No unexplained weight loss. No weight gain. HEMATOLOGIC/LYMPHATIC: No anemia. No purpura. No petechiae. No prolonged or excessive bleeding. No palpable lymph nodes. PERSONAL/FAMILY/SOCIAL HISTORY: The patient is , lives with the . He is a retired police patrol officer. Recently one of the close family members and he has been under alot of tension, pressure and anxiety. He lives in the community but sedentary lifestyle. MEDICATIONS: Exforge 5/325 one a day Metformin 1000 twice a day Farxiga 10 mg p.o. daily Aspirin 81 mg p.o. daily Metoprolol 25 mg p.o. daily Simvastatin 20 mg p.o. at bedtime Testosterone 200 mg IM as directed ALLERGIES: NKDA PHYSICAL EXAMINATION: GENERAL: The patient is oriented to time, place and person. VITAL SIGNS: Temperature 98, pulse 50/min, respiratory rate 18, BP 140/80. HEENT: Head normocephalic, atraumatic. Eyes: Extraocular muscles are intact. Pupils are equal, round and reactive to light and accommodation. Ears: No lesions. Nose appeared normal. Throat: No exudate or erythema. NECK: Supple. No JVD, no carotid bruit. No lymphadenopathy or thyromegaly. LUNGS: Clear to auscultation. Percussion note normal. Chest symmetrical. HEART: S1, S2, no S3. No murmurs. No cyanosis or clubbing. No ascites. Pulses: Dorsalis pedis and posterior tibial pulses +2 bilaterally. ABDOMEN: Soft. Nontender. Bowel sounds active. No CVA tenderness. No mass felt. EXTREMITIES: No edema. Full range of motion of all extremities, equal. NEUROLOGIC: No focal deficit. Cranial nerves II through XII are grossly intact. No headache, no double vision or headache. SKIN: Not dry. Intact. Turgor - normal. LYMPHATIC: No palpable lymph nodes/no lymphedema. MUSCULOSKELETAL: Normal joints with no swelling. Muscle tone is normal. EKG sinus rhythm. No acute changes ASSESSMENT: 1. CHEST PAIN, SEEMS TO BE NONCARDIAC WITH MULTIPLE CAD RISK FACTORS LIKE HYPERTENSION, DYSLIPIDEMIA, SEDENTARY LIFESTYLE, OBESITY, HYPERTENSION, DIABETES MELLITUS PLAN: 1. Admit the patient 2. Telemetry 3. Cardiac markers 4. Eventually will do echo and stress echo once we are sure that the patient's cardiovascular status is stable. EDUCATION: Carried out about diabetes mellitus and its complications. Also BMI is 34 and explained about weight loss diet. TIME SPENT: More than 70 minutes. JAROCHO
--- NOTE | 2017-09-21 13:46 | DS ---
DATE OF SERVICE: 09/16/17 FINAL DIAGNOSIS: 1. CHEST PAIN SEEMS TO BE NONCARDIAC 2. HYPERTENSION 3. DYSLIPIDEMIA 4. DIABETES MELLITUS 5. METABOLIC SYNDROME 6. HYPERGONADISM 7. SEDENTARY LIFESTYLE 8. BMI 34 DISCHARGE INSTRUCTIONS: Followup appointment with Dr. Mckeon. The patient is to call the office for followup appointment in 5 to 7 days. MEDICATIONS AT DISCHARGE: Advised to continue the same medications as before. No change in medication. Metformin 1,000 mg p.o. b.i.d. Exforge 5-320 one each p.o. daily Farxiga 10 mg p.o. daily Aspirin 81 mg p.o. daily with meal Anastrozole 1 mg p.o. as directed Simvastatin (Zocor) 20 mg p.o. bedtime Metoprolol 25 mg p.o. daily Testosterone 200 mg IM as directed NEW PRESCRIPTIONS: None DIET INSTRUCTIONS: Diabetic diet, heart healthy ACTIVITY: As the patient tolerates. SMOKING: Nonsmoker DISEASE SPECIFIC EDUCATION: Weight loss Advised to cut down on salt intake DASH diet discussed Hold blood pressure 130/80 or less Non HDL less than 100 - all discussed HOSPITAL COURSE: 62-year-old white male hospitalized with chest pain, which was fairly atypical, left shoulder, left upper part of chest going through to the back. The patient' s cardiac markers and EKG unchanged, normal. No ST-T wave changes noted on telemetry. No significant arrhythmias noted. The patient's echo showed enlarged LV cavity with normal LV ejection fraction, enlarged LA cavity, borderline. Also mildly dilated aortic root. All findings discussed. The patient's stress test on regular Mick protocol, METS of 9.0. Did not show any ST-T wave change. Left shoulder discomfort, chest pain was noted. His blood pressure response was hypertensive. The patient was discharged home in stable condition as patient did not have any evidence of coronary insufficiency. He was explained about sedentary lifestyle to change it. Also advised to lose weight. Metabolic syndrome discussed. Complications of diabetes discussed. CONDITION AT TIME OF DISCHARGE: Stable. LABS: Discharge hemoglobin 60, hematocrit 49, WBC 8,000, normal differential. Creatinine 0.8, BUN 60, potassium 4.5. TIME SPENT: More than 60 minutes. MTDD
--- NOTE | 2017-09-21 13:57 | PN ---
DATE OF SERVICE: 09/16/17 SUBJECTIVE: The patient was hospitalized with chest pain, which was noncardiac by history. The patient has multiple risk factors for coronary artery disease. She was hospitalized. The patient underwent echocardiogram this morning which showed dilated cardiomyopathy with near normal ejection fraction. Stress test - the patient reached the target heart rate with no ST-T wave changes, no chest pain, no left shoulder discomfort, occasional PVCs seen. The patient's blood pressure response was hypertensive. Stress exercise echo showed normal LV contractility. PHYSICAL EXAMINATION: HEENT: Head normocephalic, atraumatic. Eyes: Extraocular muscles are intact. Pupils are equal, round and reactive to light and accommodation. Ears: No lesions. Nose appeared normal. Throat: No exudate or erythema. NECK: Supple. No JVD, no carotid bruit. No lymphadenopathy or thyromegaly. LUNGS: Decreased breath sounds but clear to auscultation. Percussion note normal. Chest symmetrical. HEART: S1, S2, no S3. No murmurs. No cyanosis or clubbing. No ascites. Pulses: Dorsalis pedis and posterior tibial pulses +1 to +2 both sides. ABDOMEN: Soft. Nontender. Bowel sounds active. No CVA tenderness. No mass felt. EXTREMITIES: No edema. Full range of motion of all extremities, equal. NEUROLOGIC: No focal deficit. Cranial nerves II through XII are grossly intact. No headache, no double vision or headache. SKIN: Not dry. Intact. Turgor - normal. LYMPHATIC: No palpable lymph nodes/no lymphedema. MUSCULOSKELETAL: Normal joints with no swelling. Muscle tone is normal. ASSESSMENT: 1. CHEST PAIN SEEMS TO BE NONCARDIAC WITH NEGATIVE STRESS ECHO, NEGATIVE CARDIAC MARKERS AND EKGs. PLAN: 1. The patient will be discharged home. 2. Continue the same medications. 3. Advised to lose weight. 4. Advised to increase activity. Exercise program discussed 30 minutes, cardiovascular, 5 days a week. 5. Diabetes mellitus discussed with complications. 6. Eye exam advised by Jarod Chavez yearly. CONDITION: Stable. TIME SPENT: More than 30 minutes. Plan and coordination of the patient's care discussed in the presence of nurse. JAROCHO
== END 2017-09-16 13:55 | disposition home or self-care (01) ==
LOC: ED 17:46 → MEDSURG B 20:38
PROVIDERS: ADMIT Internal Medicine; ATTEND Internal Medicine
DX: R07.89 Other chest pain (principal); I42.0 Dilated cardiomyopathy; I51.7 Cardiomegaly; I10 Essential (primary) hypertension; E78.5 Hyperlipidemia, unspecified; E11.9 Type 2 diabetes mellitus without complications; E66.9 Obesity, unspecified; E88.81 Metabolic syndrome and other insulin resistance; E29.0 Testicular hyperfunction; M25.512 Pain in left shoulder; Z63.4 Disappearance and death of family member; Z72.3 Lack of physical exercise; Z68.34 Body mass index [BMI] 34.0-34.9, adult; Z79.84 Long term (current) use of oral hypoglycemic drugs
CPT/HCPCS: 36415; 80048; 80053; 82550; 82553; 82962; 84484; 85025; 85610; 85730; 93005; 93010; 96374; 99284

== ENCOUNTER 2018-02-05 14:48 | Outpatient (CLI) ==
[2012-11-06 08:45] VITALS: TEMP 97.3
== END 2018-02-05 14:49 | disposition home or self-care (01) ==
LOC: LAB 14:48
PROVIDERS: ATTEND Physician Assistant Medical
DX: R39.12 Poor urinary stream (principal)
CPT/HCPCS: 36415

== ENCOUNTER 2018-03-06 09:51 | Outpatient (CLI) ==
[2012-11-06 08:45] VITALS: TEMP 97.3
== END 2018-03-06 09:52 | disposition home or self-care (01) ==
LOC: LAB 09:51
PROVIDERS: ATTEND Physician Assistant Medical
DX: E29.1 Testicular hypofunction (principal)
CPT/HCPCS: 36415; 80076; 82670; 84403; 85027

== ENCOUNTER 2018-09-09 09:08 | Outpatient (CLI) ==
[2012-11-06 08:45] VITALS: TEMP 97.3
== END 2018-09-09 09:09 | disposition home or self-care (01) ==
LOC: LAB 09:08
PROVIDERS: ATTEND Physician Assistant Medical
DX: E29.1 Testicular hypofunction (principal)
CPT/HCPCS: 36415; 80076; 84403; 85027

== ENCOUNTER 2018-11-11 12:40 | Inpatient (IN) ==
[2018-11-11] MEDS ORDERED: VISTARIL INJ IM PRN (12:57)
[2018-11-11] MEDS ORDERED: TYLENOL PO PRN (12:57)
[2018-11-11] MEDS ORDERED: NITROSTAT SL PRN (12:57)
[2018-11-11] MEDS ORDERED: ATROPINE SULFATE PFS IVP PRN (12:57)
[2018-11-11] MEDS ORDERED: DECADRON 4 MG/ML SDV IM STA (12:58)
[2018-11-11] MEDS: XOPENEX 1.25 MG NEB SCH ×3 (13:25→23:17)
[2018-11-11 13:28] VITALS: BMI 33.5
[2018-11-11] MEDS ORDERED: SILDENAFIL CITRATE 100 MG PO PRN (13:52)
[2018-11-11] MEDS ORDERED: TESTOSTERONE CYPIONATE 300 MG IM SCH (14:00)
[2018-11-11] MEDS ORDERED: ARIMIDEX PO SCH (14:00)
[2018-11-11] MEDS: LOVENOX SUBCUT SCH ×2 (14:04→20:52)
--- NOTE | 2018-11-11 16:18 | US ---
EXAM: ULTRASOUND LOWER EXTREMITY VENOUS DOPPLER EXAM HISTORY: Elevated D-dimer. FINDINGS: Bilateral lower extremity venous Doppler exam. Real time botello-scale, Doppler spectral milton lysis and color-flow Doppler imaging performed. The veins targeted for evaluation include the common femoral, greater saphenous, profundus, femoral, popliteal, peroneal, anterior tibial and posterior t ibial. The evaluated veins demonstrated normal spontaneous flow and compression without evidence o f thrombosis. IMPRESSION: No venous thrombosis identified within the areas evaluated.
[2018-11-11] MEDS ORDERED: GLUCOPHAGE PO SCH (17:30)
[2018-11-11] MEDS: ZOCOR PO SCH (20:52)
[2018-11-11] MEDS: DITROPAN PO SCH (20:52)
[2018-11-11] MEDS: LOPRESSOR PO SCH (20:52)
--- NOTE | 2018-11-11 20:54 | CT ---
EXAM: CTA of the chest. History: Chest pain and elevated D-dimer. Comparison: Chest radiograph 09/14/2017 Technique: Multiplanar CT images through the thorax were obtained following administration of IV con trast. MIP images and 3-D reconstructions were also provided. Findings: Heart is enlarged. No pericardial effusion. No thoracic aortic aneurysm. Great vessels are not well opacified with contrast material. There is some motion artifact. No pulmonary arterial filling defects are identified. No pathologica lly enlarged thoracic lymph nodes. No consolidation. No pleural fluid and no pneumothorax. 2.7 cm right lower lung pleural based opacity. Within the visualized upper abdomen, possible gallbladder wall thickening. No acute osseous abnormal ities. 2 cm cyst within the left kidney. Impression: 1. No pulmonary embolism. 2. Cardiomegaly without evidence for pulmonary edema. 3. No focal pneumonia. 4. Right lower lobe pleural-based opacity probably represents rounded atelectasis. A malignant etio logy is not excluded. Recommend follow-up chest CT in 6 months. 5. Possible gallbladder wall thickening. Recommend right upper quadrant abdominal ultrasound.
[2018-11-11] MEDS ORDERED: NON-FORMULARY MEDICATION (Simvastatin [Zocor] 20 MG) PO SCH (21:00)
[2018-11-11] MEDS ORDERED: NON-FORMULARY MEDICATION (Metformin Hcl [Metformin Hcl] 1,000 MG) PO SCH (21:00)
[2018-11-12] MEDS: XOPENEX 1.25 MG NEB SCH ×4 (04:32→22:38)
[2018-11-12] MEDS ORDERED: DECADRON 4 MG/ML SDV IM ONE (08:00)
[2018-11-12] MEDS ORDERED: AMLODIPINE PO SCH (09:00)
[2018-11-12] MEDS ORDERED: VALSARTAN PO SCH (09:00)
--- NOTE | 2018-11-12 10:27 | PCM.PROG ---
Attending Provider: ATTENDING PROVIDER: Dr. JENNA PEGUERO DATE OF SERVICE: 11/12/18 SUBJECTIVE: This 63 year old WHITE/ M was hospitalized 11/11/18 with shortness of breath and bronchitis type of symptoms with atrial fibrillation, new onset. The patient is feeling better. REVIEW OF SYSTEMS: CONSTITUTIONAL: No night sweats. No fatigue, malaise, lethargy. No fever or chills. HEENT: Eyes: No visual changes. No eye pain. No eye discharge. ENT: No runny nose. No epistaxis. No sinus pain. No odynophagia. No congestion. RESPIRATORY: No cough, no congestion. No hemoptysis. No shortness of breath. CARDIOVASCULAR: No angina symptoms. No CHF symptoms. No atypical chest pain for CAD. No palpitations. No orthopnea.. GASTROINTESTINAL: No abdominal pain. No nausea or vomiting. No diarrhea or constipation. No hematemesis. No hematochezia. GENITOURINARY: No urgency. No frequency. No dysuria. No hematuria. No obstructive symptoms. No discharge. No pain. No significant abnormal bleeding. MUSCULOSKELETAL: No musculoskeletal pain; no joint swelling. NEUROLOGICAL: Awake, alert, oriented to time, place and person. No headache. No neck pain. No syncope. No seizures. No dizziness. PSYCHIATRIC: Not anxious. No depression. No suicidal thoughts. No homicidal thoughts. SKIN: No rash. No lesions. No wounds. ENDOCRINE: No unexplained weight loss. No weight gain. HEMATOLOGIC/LYMPHATIC: No anemia. No purpura. No petechiae. No prolonged or excessive bleeding. No palpable lymph nodes. PHYSICAL EXAMINATION: GENERAL: The patient is awake, alert and oriented, lying in bed in no distress. VITAL SIGNS: Temperature 97.8 F, Pulse 66, Respiratory Rate 18, BP 146/87, Pulse Ox 98% HEENT: Head normocephalic, atraumatic. Eyes: Extraocular muscles are intact. Pupils are equal, round and reactive to light and accommodation. Ears: No lesions. Nose appeared normal. Throat: No exudate or erythema. NECK: Supple. No JVD, no carotid bruit. No lymphadenopathy or thyromegaly. LUNGS: Decreased breath sounds, good air entry. Clear to auscultation. Percussion note normal. Chest symmetrical. HEART: S1, S2, no S3. No murmurs. No cyanosis or clubbing. No ascites. Pulses: Dorsalis pedis and posterior tibial pulses +1 to +2 both sides. ABDOMEN: Soft. Non-tender. Bowel sounds active. No CVA tenderness. No mass felt. EXTREMITIES: No edema. Full range of motion of all extremities, equal. NEUROLOGIC: No focal deficit. Cranial nerves II through XII are grossly intact. No headache, no double vision or headache. SKIN: Warm and dry. Intact. Turgor-normal. LYMPHATIC: No palpable lymph nodes/no lymphedema. MUSCULOSKELETAL: Normal joints with no swelling. Muscle tone is normal. LAB REVIEW: 11/12/18 06:25 11/12/18 06:25 11/12/18 06:25: Sodium 139.7, Potassium 3.67, Chloride 103.3, Carbon Dioxide 22.7, Anion Gap 17.37, BUN 14.7, Creatinine 0.88, Estimated GFR (MDRD) 88.00, BUN/Creatinine Ratio 16.70, Glucose 143.2 H, Calcium 9.01, Total Bilirubin 0.66 , AST 11.6 L, ALT 14.3, Alkaline Phosphatase 53.4 L, Total Protein 6.76, Albumin 4.17, Globulin 2.59, Albumin/Globulin Ratio 1.61 11/12/18 06:25: WBC 6.69, RBC 5.38, Hgb 12.9 L, Hct 41.4 L, MCV 77.0 L, MCH 24.0 L, MCHC 31.2 L, RDW Coeff of Estela 14.5, Plt Count 246, Immature Gran % (Auto ) 0.4, Neut % (Auto) 71.4, Lymph % (Auto) 19.0, Whitfield % (Auto) 8.8, Eos % (Auto) 0.1, Baso % (Auto) 0.3, Immature Gran # (Auto) 0.0, Neut # (Auto) 4.8, Lymph # ( Auto) 1.3, Whitfield # (Auto) 0.6, Eos # (Auto) 0.0, Baso # (Auto) 0.0 11/11/18 21:05: Total Creatine Kinase 158.7, CK-MB (CK-2) 1.990, CK-MB (CK-2) % 1.2500, Troponin I < 0.012 11/11/18 14:15: Urine Color Yellow, Urine Clarity Clear, Urine pH 7.0, Ur Specific [place] 1.010, Urine Protein Negative, Urine Glucose (UA) 2+, Urine Ketones Negative, Urine Blood Negative, Urine Nitrite Negative, Urine Bilirubin Negative, Urine Urobilinogen 0.2, Ur Leukocyte Esterase Negative 11/11/18 13:20: D-Dimer (Manual) 1596.18 11/11/18 13:20: Free T4 1.14 11/11/18 13:20: Sodium 138.2, Potassium 4.23, Chloride 101.4, Carbon Dioxide 26.5, Anion Gap 14.53, BUN 14.6, Creatinine 0.92, Estimated GFR (MDRD) 83.00, BUN/Creatinine Ratio 15.86, Glucose 185.4 H, Calcium 9.07, Total Bilirubin 0.87 , AST 14.5 L, ALT 16.3, Alkaline Phosphatase 46.1 L, Total Creatine Kinase 137.7 , CK-MB (CK-2) 2.200, CK-MB (CK-2) % 1.5900, Troponin I < 0.012, NT-Pro-B Natriuret Pep 700.000 H, Total Protein 6.69, Albumin 4.24, Globulin 2.45, Albumin/Globulin Ratio 1.73, TSH 1.570 11/11/18 13:20: WBC 6.47, RBC 5.35, Hgb 12.8 L, Hct 41.3 L, MCV 77.2 L, MCH 23.9 L, MCHC 31.0 L, RDW Coeff of Estela 14.6, Plt Count 252, Immature Gran % (Auto ) 0.3, Neut % (Auto) 65.1, Lymph % (Auto) 22.1, Whitfield % (Auto) 9.4, Eos % (Auto) 2.6, Baso % (Auto) 0.5, Immature Gran # (Auto) 0.0, Neut # (Auto) 4.2, Lymph # ( Auto) 1.4, Whitfield # (Auto) 0.6, Eos # (Auto) 0.2, Baso # (Auto) 0.0 ASSESSMENT: Please see below. 1. Atrial fibrillation, right from the beginning has slow ventricular response. PLAN: 1. Will do echo and stress echo. 2. Start the patient on Amiodarone 3. Eliquis discussed, hold for now 4. The patient is on Lovenox 60mg Q 12 hours. Plan and coordination of the patient's care discussed in the presence of Student Nurse and nurse. SCRIBED BY: SILVIO ROMERO Winding Rack Operator scribed while in presence of service performed by Dr. JENNA PEGUERO on 11/12/18 ([id number])
--- NOTE | 2018-11-12 10:54 | US ---
EXAM: ULTRASOUND ABDOMEN LIMITED HISTORY: Abnormal gallbladder on CT, wall thickening FINDINGS: Ultrasound abdomen, limited. Guerrero-scale ultrasound and color Doppler was performed. Live r size was measured at 14 cm, within normal limits. Liver parenchyma demonstrated increased sound at tenuation suggesting steatosis. No focal hepatic lesion or evidence of intrahepatic biliary dilatati on was identified. The main portal vein is patent and hepatopedal. No gallstones or gallbladder sludge. The gallbladder wall thickness was measured at 0.26 cm which is within normal limits. The common bile duct diameter was measured at 0.4 cm which is within normal l imits. The pancreas was not clearly seen. No obvious ascites. IMPRESSION: 1. No gallbladder stones or wall thickening identified sonographically. Common bile duct diameter w ithin normal limits. 2. Fatty liver.
[2018-11-12] MEDS ORDERED: DECADRON 4 MG/ML SDV ONE (11:25)
[2018-11-12] MEDS: ASPIRIN EC PO SCH (11:26)
[2018-11-12] MEDS: LOPRESSOR PO SCH ×2 (11:27→20:56)
[2018-11-12] MEDS: DITROPAN PO SCH ×2 (11:27→20:56)
[2018-11-12] MEDS: CORDARONE PO SCH ×3 (11:27→20:56)
[2018-11-12] MEDS: DIOVAN PO SCH (11:27)
[2018-11-12] MEDS: NORVASC PO SCH (11:27)
[2018-11-12] MEDS: NON-FORMULARY MEDICATION (Dapagliflozin Propanediol [Farxiga] 10 MG) PO SCH (11:27)
[2018-11-12] MEDS: LOVENOX SUBCUT SCH ×2 (11:29→21:00)
--- NOTE | 2018-11-12 11:42 | NM ---
Cardiac Stress Test HISTORY: Chest pain. Atrial fibrillation.. COMPARISON: None of this type. TECHNIQUE: Resting: The patient was injected with 3.5 mCi of thallium 201 chloride intravenously after which a "resting" SPECT study of the heart was performed. Stress: The patient was stressed using a Mick protocol and at the appropriate time injected with 23 .4 mCi of 99m technetium Sestamibi (Cardiolite) after which a "stress" SPECT study of the heart was p erformed. Gated images of the heart were also obtained to assess wall motion and calculate ejection fraction. For details of the stress protocol employed, reference is made to the separate report of t performing physician. FINDINGS: The stress perfusion images demonstrate a generally uniform distribution of activity in th e left ventricular myocardium. The resting perfusion images demonstrate no evidence of significant r edistribution/ischemia. The left ventricular ejection fraction (LVEF) is 57 %. IMPRESSION: 1. Left ventricular myocardial perfusion is within normal limits. 2. The left ventricular ejection fraction (LVEF) is 57 %.
[2018-11-12] MEDS ORDERED: HYDROCHLOROTHIAZIDE PO STA (13:15)
[2018-11-12] MEDS ORDERED: HYDROCHLOROTHIAZIDE PO SCH (13:30)
--- NOTE | 2018-11-12 14:47 | HP ---
DATE OF SERVICE: 11/11/18 HISTORY OF PRESENT ILLNESS: 63-year-old male with complaints of shortness of breath with wheezing times three days. The patient worked outside in the rain/humidity and heat. No chest pain. No orthopnea. PAST MEDICAL HISTORY: Hypertension Dyslipidemia Polycythemia Diabetes mellitus type 2 Obesity Right knee osteoarthritis DJD spine Metabolic syndrome History of pancreatitis PAST SURGICAL HISTORY: Colonoscopy 12/03 Dr. Chavez Hernia Cataract Cyst left ankle REVIEW OF SYSTEMS: CONSTITUTIONAL: No fever, no fatigue. HEENT: No sinus drainage, no sore throat. RESPIRATORY: Cough (maybe). No hemoptysis. CARDIOVASCULAR: No atypical chest pain for coronary artery disease. No angina , CHF symptoms, no palpitations. Positive for shortness of breath with minimal exertion. GASTROINTESTINAL: No melena or abdominal pain. No GERD. GENITOURINARY: No hematuria, no prostatism, no polyuria. BRICK MACHINE OPERATOR: No blackout, no dizziness, no headache, no double vision. MUSCULOSKELETAL: No osteoarthritis pain, no joint swelling. ENDOCRINE: No weight loss, no weight gain. SKIN: Not dry, no rash. PSYCHIATRIC: Not anxious, no depression, no suicidal thoughts, no homicidal thoughts. SOCIAL HISTORY: The patient is . No children. Retired. No illicit drug use. Nonsmoker. No alcohol use. FAMILY HISTORY: Father and mother . Three brothers. Three sisters. MEDICATIONS: Metformin 1000 b.i.d. Exforge 5/320 daily ASA 81 mg daily Farxiga 10 mg daily Metoprolol 25 mg b.i.d. Testosterone 300 mg q.2 weeks Anastrozole 1 mg p.o. two times per week Simvastatin 20 mg daily Sildenafil 100 mg p.r.n. Vitamin E 400 units b.i.d. Oxybutynin 5 mg b.i.d. gives Symbicort ALLERGIES: ASA, LIPITOR PHYSICAL EXAMINATION: V/S: Pulse 64, BP 142/80, temperature 98.1, 02 sat 95%. Height 6'1", BMI 33.3, weight 252.6. GENERAL APPEARANCE: Oriented times three. HEENT: Normal. NECK: No JVP, no bruits. RESPIRATORY: Decreased breath sounds with wheeze. CARDIOVASCULAR: S1, S2, no S3, no murmurs. No cyanosis, clubbing. No ascites. GI/ABDOMEN: No tenderness. Bowel sounds are active. EXTREMITIES: edema, pulses +1, equal. BRICK MACHINE OPERATOR: Deep tendon reflexes, sensory, motor and gait all normal. RECTAL/PROSTATE: Colonoscopy 12/03 Dr. Chavez. Prostate 02/05 (0.5). EKG atrial fibrillation rate 62/min. No acute changes. FEV1 65% of predicted. FVC 55% of predicted now. Sodium 138, potassium 4.2, BUN 14, creatinine 0.92, total bili 0.87, AST 14, ALT 16, troponin less than 0.01, pro BNP 700, total protein 6.6, D. dimer 1596. White count 6.47, hemoglobin 12.8, hematocrit 41.3, platelets 252. ASSESSMENT: 1. SHORTNESS OF BREATH/ASTHMATIC BRONCHITIS (QUESTIONABLE)/ATRIAL FIBRILLATION NEW ONSET. 2. HYPERTENSION. 3. DYSLIPIDEMIA. 4. POLYCYTHEMIA. 5. DIABETES MELLITUS TYPE 2, A1C 9.2 ON 06/08. 6. OBESITY. 7. RIGHT KNEE OSTEOARTHRITIS. 8. DJD SPINE. 9. METABOLIC SYNDROME. 10. HYPOGONADISM. 11. HISTORY OF PANCREATITIS. PLAN: 1. Admit regular with routine telemetry orders. 2. Continue all medications. 3. 1 cc Decadron IM now and in a.m. 4. Xopenex now and q.i.d. 5. Echocardiogram. 6. Stress echo Sestamibi. 7. Lovenox 60 mg subQ now and q.12hr. 8. Telemetry. 9. Pro BNP/D. dimer/T4 and TSH. TIME SPENT: More than 70 minutes. [facility]
[2018-11-12] MEDS: ZOCOR PO SCH (20:56)
[2018-11-13] MEDS: XOPENEX 1.25 MG NEB SCH ×2 (04:50→11:11)
[2018-11-13 05:02] VITALS: BP 142/84; TEMP 97.9
[2018-11-13] MEDS ORDERED: HYDROCHLOROTHIAZIDE PO SCH (09:00)
[2018-11-13] MEDS ORDERED: PREDNISONE PO SCH (09:30)
[2018-11-13] MEDS ORDERED: COREG PO SCH (09:30)
[2018-11-13] MEDS: ASPIRIN EC PO SCH (09:39)
[2018-11-13] MEDS: CORDARONE PO SCH (09:40)
[2018-11-13] MEDS: DIOVAN PO SCH (09:40)
[2018-11-13] MEDS: LOPRESSOR PO SCH (09:40)
--- NOTE | 2018-11-13 09:40 | PCM.PROG ---
Attending Provider: ATTENDING PROVIDER: Dr. JENNA PEGUERO DATE OF SERVICE: 11/13/18 SUBJECTIVE: This 63 year old WHITE/ M was hospitalized 11/11/18 with shortness of breath, bronchitis type of symptoms with atrial fibrillation, new onset. His condition has improved. The patient is feeling a lot better and breathing better. REVIEW OF SYSTEMS: CONSTITUTIONAL: No night sweats. No fatigue, malaise, lethargy. No fever or chills. HEENT: Eyes: No visual changes. No eye pain. No eye discharge. ENT: No runny nose. No epistaxis. No sinus pain. No odynophagia. No congestion. RESPIRATORY: No cough, no congestion. No hemoptysis. No shortness of breath. CARDIOVASCULAR: No angina symptoms. No CHF symptoms. No atypical chest pain for CAD. No palpitations. No orthopnea.. GASTROINTESTINAL: No abdominal pain. No nausea or vomiting. No diarrhea or constipation. No hematemesis. No hematochezia. GENITOURINARY: No urgency. No frequency. No dysuria. No hematuria. No obstructive symptoms. No discharge. No pain. No significant abnormal bleeding. MUSCULOSKELETAL: No musculoskeletal pain; no joint swelling. NEUROLOGICAL: Awake, alert, oriented to time, place and person. No headache. No neck pain. No syncope. No seizures. No dizziness. PSYCHIATRIC: Not anxious. No depression. No suicidal thoughts. No homicidal thoughts. SKIN: No rash. No lesions. No wounds. ENDOCRINE: No unexplained weight loss. No weight gain. HEMATOLOGIC/LYMPHATIC: No anemia. No purpura. No petechiae. No prolonged or excessive bleeding. No palpable lymph nodes. PHYSICAL EXAMINATION: GENERAL: The patient is awake, alert and oriented, sitting in bed in no distress. VITAL SIGNS: Temperature 97.9 F, Pulse 70, Respiratory Rate 20, BP 142/84, Pulse Ox 96% HEENT: Head normocephalic, atraumatic. Eyes: Extraocular muscles are intact. Pupils are equal, round and reactive to light and accommodation. Ears: No lesions. Nose appeared normal. Throat: No exudate or erythema. NECK: Supple. No JVD, no carotid bruit. No lymphadenopathy or thyromegaly. LUNGS: Decreased breath sounds with good air entry. No wheezing. Clear to auscultation. Percussion note normal. Chest symmetrical. HEART: S1, S2, no S3. No murmurs. No cyanosis or clubbing. No ascites. Pulses: Dorsalis pedis and posterior tibial pulses +1 to +2 both sides. ABDOMEN: Soft. Non-tender. Bowel sounds active. No CVA tenderness. No mass felt. EXTREMITIES: No edema. Full range of motion of all extremities, equal. NEUROLOGIC: No focal deficit. Cranial nerves II through XII are grossly intact. No headache, no double vision or headache. SKIN: Warm and dry. Intact. Turgor-normal. LYMPHATIC: No palpable lymph nodes/no lymphedema. MUSCULOSKELETAL: Normal joints with no swelling. Muscle tone is normal. LAB REVIEW: 11/13/18 05:00 11/13/18 05:00 11/13/18 05:00: Sodium 138.8, Potassium 3.86, Chloride 101.0, Carbon Dioxide 25.9, Anion Gap 15.76, BUN 18.8, Creatinine 1.02, Estimated GFR (MDRD) 74.00, BUN/Creatinine Ratio 18.43, Glucose 186.6 H, Calcium 9.32, Total Bilirubin 0.66 , AST 10.7 L, ALT 15.5, Alkaline Phosphatase 53.8 L, Total Protein 6.66, Albumin 4.22, Globulin 2.44, Albumin/Globulin Ratio 1.72 11/13/18 05:00: WBC 7.43, RBC 5.62, Hgb 13.3 L, Hct 42.9, MCV 76.3 L, MCH 23.7 L , MCHC 31.0 L, RDW Coeff of Estela 14.6, Plt Count 277, Immature Gran % (Auto) 0.4 , Neut % (Auto) 69.0, Lymph % (Auto) 21.9, [place] % (Auto) 7.9, Eos % (Auto) 0.4, Baso % (Auto) 0.4, Immature Gran # (Auto) 0.0, Neut # (Auto) 5.1, Lymph # (Auto ) 1.6, [place] # (Auto) 0.6, Eos # (Auto) 0.0, Baso # (Auto) 0.0 ASSESSMENT: Please see below. 1. Asthmatic bronchitis, resolved. 2. Early left ventricular failure with patient's BNP 500. 3. Dilated cardiomyopathy, hypertrophic 4. Atrial fibrillation, new onset 5. Hypertension 6. Dyslipidemia 7. BMI 34 PLAN: 1. Reduce weight 2. Diet for Diabetes Mellitus discussed 3. Eliquis 5mg twice a day, side effects of blood thinners discussed with the patient. 4. Prednisone 10mg for 5 days 5. Proair two puffs PRN 6. Discontinue Metoprolol 7. Coreg 6.25mg twice a day 8. Diovan/Hydrochlorothiazide 320-25 PO daily 9. Amlodipine 5mg PO daily 10.Do not take aspirin Plan and coordination of the patient's care discussed in the presence of Director Property and nurse. SCRIBED BY: SILVIO ROMERO Commercial Loan Closer scribed while in presence of service performed by Dr. JENNA PEGUERO on 11/13/18 ([id number])
[2018-11-13] MEDS: DITROPAN PO SCH (09:44)
[2018-11-13] MEDS: NON-FORMULARY MEDICATION (Dapagliflozin Propanediol [Farxiga] 10 MG) PO SCH (09:44)
[2018-11-13] MEDS: NORVASC PO SCH (09:44)
[2018-11-13] MEDS: LOVENOX SUBCUT SCH (09:46)
[2018-11-13] MEDS ORDERED: DIOVAN PO SCH (10:00)
[2018-11-13] MEDS ORDERED: ELIQUIS PO STA (10:31)
--- NOTE | 2018-11-13 12:23 | CM.DICTOOL ---
ADMISSION: 11/11/18 12:40 DISCHARGE: NOVEMBER 13, 2018 DATE OF SERVICE: 11/13/18 FINAL DIAGNOSIS ATRIAL FIBRILLATION, NEW ONSET ASTHMATIC BRONCHITIS SHORTNESS OF AIR DILATED HYPERTROPHIC CARDIOMYOPATHY, PER ECHO DIABETES, TYPE 2 A1C 9.2 () HYPERTENSION DYSLIPIDEMIA POLYCYTHEMIA OBESITY OSTEOARTHRITIS, RIGHT KNEE METABOLIC SYNDROME DJD SPINE HISTORY OF PANCREATITIS HYPOGONADISM HERNIA REPAIR BILATERAL CATARACT EXTRACTION, 2016 COLONOSCOPY WITH POLYPECTOMY, 2016 LEFT ORCHIECTOMY LAST VITALS Temp Pulse Resp BP Pulse Ox 97.9 F 70 20 142/84 H 96 11/13/18 05:00 11/13/18 08:00 11/13/18 05:00 11/13/18 05:00 11/13/18 05:00 TAKE THESE MEDICATIONS AT HOME Amlodipine Besylate (Norvasc) 5 mg PO DAILY [facility] Last Admin: 11/13/18 09:44 Dose: 5 mg Anastrozole (Arimidex) 1 mg PO MoFr@0900 [facility] Last Admin: 11/11/18 14:04 Dose: 1 mg Apixaban (Eliquis) 5 mg PO BID Last Admin: 11/13/18 10:38 Dose: 5 mg Carvedilol (Coreg) 6.25 mg PO BIDWM [facility] Last Admin: 11/13/18 09:45 Dose: 6.25 mg Hydrochlorothiazide (Hydrochlorothiazide) 25 mg PO DAILY [facility] Last Admin: 11/13/18 09:45 Dose: 25 mg Metformin HCl (Glucophage) 1,000 mg PO BIDWM [facility] Last Admin: 11/11/18 16:31 Dose: Not Given Non-Formulary Medication (Dapagliflozin Propanediol [Farxiga]) 10 mg PO DAILY [facility] Last Admin: 11/13/18 09:44 Dose: 10 mg Non-Formulary Medication (Sildenafil Citrate [Sildenafil Citrate]) 100 mg PO DAILY PRN PRN Reason: male enhancement Non-Formulary Medication (Testosterone Cypionate [Testosterone Cypionate]) 300 mg IM EVERY OTHER WEEK [facility] Oxybutynin Chloride (Ditropan) 5 mg PO BID [facility] Last Admin: 11/13/18 09:44 Dose: 5 mg Prednisone (Prednisone) 10 mg PO DAILYWM [facility] Stop: 11/23/18 09:29 Last Admin: 11/13/18 09:45 Dose: 10 mg Simvastatin (Zocor) 20 mg PO BEDTIME [facility] Last Admin: 11/12/18 20:56 Dose: 20 mg Valsartan (Diovan) 320 mg PO DAILY [facility] Last Admin: 11/13/18 09:44 Dose: 320 mg PRO AIR HFA 2 PUFFS QID PRN WHEEZING/SHORTNESS OF AIR ALLERGIES No Known Allergies Allergy (Verified 09/14/17 17:53) DISCONTINUED MEDICATIONS METOPROLOL (LOPRESSOR) ASPIRIN NEW PRESCRIPTIONS: COREG 6.25 MG BID PREDNISONE 10 MG DAILY FOR 5 DAYS PROAIR HFA 2 PUFFS QID PRN WHEEZING/SHORTNESS OF AIR HYDROCHLOROTHIAZIDE 25 MG DAILY ELIQUIS 5 MG BID SMOKING: NOT APPLICABLE DISEASE SPECIFIC EDUCATION: ATRIAL FIBRILLATION LIFESTYLE MODIFICATION; INCLUDING WEIGHT LOSS, EXERCISE INCLUDING CARDIO, BLOOD SUGARS, DIET NEW MEDICATIONS; INCLUDING ELIQUIS AND POSSIBLE SIDE EFFECT OF BLEEDING APPOINTMENTS LAB REVIEW: 11/13/18 05:00 11/13/18 05:00 11/13/18 05:00: Sodium 138.8, Potassium 3.86, Chloride 101.0, Carbon Dioxide 25.9, Anion Gap 15.76, BUN 18.8, Creatinine 1.02, Estimated GFR (MDRD) 74.00, BUN/Creatinine Ratio 18.43, Glucose 186.6 H, Calcium 9.32, Total Bilirubin 0.66 , AST 10.7 L, ALT 15.5, Alkaline Phosphatase 53.8 L, Total Protein 6.66, Albumin 4.22, Globulin 2.44, Albumin/Globulin Ratio 1.72 11/13/18 05:00: WBC 7.43, RBC 5.62, Hgb 13.3 L, Hct 42.9, MCV 76.3 L, MCH 23.7 L , MCHC 31.0 L, RDW Coeff of Estela 14.6, Plt Count 277, Immature Gran % (Auto) 0.4 , Neut % (Auto) 69.0, Lymph % (Auto) 21.9, [place] % (Auto) 7.9, Eos % (Auto) 0.4, Baso % (Auto) 0.4, Immature Gran # (Auto) 0.0, Neut # (Auto) 5.1, Lymph # (Auto ) 1.6, [place] # (Auto) 0.6, Eos # (Auto) 0.0, Baso # (Auto) 0.0 PLAN: DISCHARGE HOME DIET: HEART HEALTHY, CONSISTENT CARBOHYDRATES ACTIVITY: GRADUALLY RESUME ACTIVITY TO INCLUDE GYM/CARDIO 4-5 TIMES PER WEEK CONTINUE TO CHECK YOUR BLOOD SUGARS 2-4 TIMES DAILY MAY RESUME HOME MEDICATION OF METFORMIN TOMORROW MORNING (11-14-2018) AN APPOINTMENT IS SCHEDULED WITH DR. PEGUERO ON November AT 8:45 AM AN APPOINTMENT IS SCHEDULED WITH DR. SPENCE, CARDIO/ELECTROPHYSIOLOGY ON December AT 1:30 PM. THE OFFICE IS LOCATED AT [facility] IN [place], [place] CODE STATUS: FULL CODE MR. BAILON IS ALERT AND ORIENTED X 3. HE LIVES AT HOME WITH HIS , [place]. MR. BAILON IS AGREEABLE TO DISCHARGE PLANS FOR TODAY. HE HAS BEEN ADVISED OF ALL APPOINTMENTS AND NEW MEDICATIONS AND IS AGREEABLE. MR. BAILON IS INDEPENDENT WITH ADL'S. HE IS AMBULATORY WITHOUT STAFF ASSISTANCE OR USE OF ASSISTIVE DEVICE. MEAL INTAKES ARE GOOD AT 100%. HE IS CONTINENT OF BOWEL AND BLADDER. SKIN TURGOR IS GOOD, HYDRATION IS ADEQUATE. SKIN IS INTACT. JENNA PEGUERO MD
[2018-11-13] MEDS ORDERED: ELIQUIS PO SCH (21:00)
--- NOTE | 2018-11-14 09:03 | ECHO2D ---
Date of Exam: 11/12/18 Ordering Physician: DR. JENNA PEGUERO Room #: [id number] Reason for Echo: NEW ONSET ATRIAL FIBRILLATION, SOB, HTN, CHEST PAIN M-Mode Normal Adult Results LV Dimensions Normal Adult Results AoV Opening excursions >1.6 >1.6 LVEDD-base- 3.5-5.8 6.2 Ao root dimensions 2.0-3.7 4.2 LVESD-base- 3.1-4.6 L. Atrium dimensions 1.9-3.8 5.5 Post. Wall thickness 0.8-1.1 1.2 IV septum (thickness) 0.7-1.2 1.3 Post. Wall excursion 0.72-1.3 NORMAL Septal motion 0.8 Systolic motion R. Ventricular cavity 1.5-2.0 NORMAL LVEF 60% 45% Paradoxical septal wall motion NORMAL 2-D : ENLARGED LEFT ATRIAL AND LEFT VENTRICLE CAVITIES--DILATED AORTIC ROOT, HYPOKINETIC SEPTAL WALL --NORMAL VALVES--NO THROMBUS, NO EFFUSION M-MODE: MV: NORMAL AV: NORMAL TV: NORMAL PV: CHAMBER SIZE: ENLARGED LEFT ATRIAL CAVITY AND LEFT VENTRICLE CAVITY WALL MOTION: HYPOKINETIC SEPTAL WALL PERICARDIUM: NORMAL INTERPRETATION: 1. LEFT VENTRICULAR HYPERTROPHY 2. DILATED LEFT ATRIAL CAVITY (5.5 CM) AND LEFT VENTRICLE CAVITY (6.2 CM) 3. LEFT VENTRICULAR EJECTION FRACTION 45% WITH HYPOKINETIC SEPTAL WALL 4. DILATED AORTIC ROOT MTDD
--- NOTE | 2018-11-14 09:40 | ECHOSTRESS ---
Date of Exam: 11/12/18 Ordering Physician: DR. JENNA PEGUERO Reason for Echo: ATRIAL FIBRILLATION, HTN, SOB, CHEST PAIN, STRESS TEST--NO ISCHEMIA M-Mode Normal Adult Results LV Dimensions Normal Adult Results AoV Opening excursions >1.6 LVEDD-base- 3.5-5.8 Ao root dimensions 2.0-3.7 LVESD-base- 3.1-4.6 L. Atrium dimensions 1.9-3.8 Post. Wall thickness 0.8-1.1 IV septum (thickness) 0.7-1.2 Post. Wall excursion 0.72-1.3 Septal motion Systolic motion R. Ventricular cavity 1.5-2.0 LVEF 60% Paradoxical septal wall motion 2-D: MILDLY HYPOKINETIC SEPTAL WALL AT REST AND IMPROVED LEFT VENTRICLE CONTRACTILITY WITH EXERCISE M-MODE: MV: AV: TV: PV: CHAMBER SIZE: WALL MOTION: MILDLY HYPOKINETIC SEPTAL WALL AT REST AND IMPROVED LEFT VENTRICLE CONTRACTILITY WITH EXERCISE PERICARDIUM: INTERPRETATION: 1. MILDLY HYPOKINETIC SEPTAL WALL AT REST AND IMPROVED LEFT VENTRICLE CONTRACTILITY WITH EXERCISE MTDD
--- NOTE | 2018-11-14 10:49 | STECHOSEST ---
Date of Test: 11/12/18 Ordering Physician: DR. JENNA PEGUERO Reason for Exam: NEW ONSET A FIB, HTN, SOB, CHEST PAIN, DM2 Smoking History: NONE Height: 71" Weight: 254 LBS Current Medications: DITROPAN, LOPRESSOR, ANASTROZOLE, LOPRESSOR, ZOCOR, METFORMIN, FARXIGA, ASA, EXFORGE Resting EKG: ATRIAL FIBRILLATION/PVC'S (TWO), NON SPECIFIC ST-T WAVE CHANGES Target Heart Rate: 134/158 S-T SEGMENT STAGE MPH/GRADE HEART RATE BPM BLOOD PRESSURE mmhg RHYTHM +/- ELEVATION DEPRESSION SYMPTOMS At Rest 65 BPM 130/72 MMHG A FIB X NONE 1 1.7/10% 100 BPM 150/70 MMHG A FIB X NONE 2 2.5/12% 118 BPM 162/68 MMHG A FIB X NONE 3 3.4/14% 4 4.2/16% 5 5.0/18% Immediately after 138 BPM A FIB X SHORT OF AIR Minutes Post Exercise 5:00 76 BPM 132/58 MMHG A FIB X NONE Minutes Post Exercise Total Time: 6:28 Maximum Heart Rate Reached: 138 BPM Reason for Termination: 8.3 99% Oxygen saturation on room air with exercises METS: 8.3 INTERPRETATION 1. NO EVIDENCE OF ISCHEMIA BY ST-T WAVE 2. NO CHEST PAIN OR DISCOMFORT 3. RHYTHM -ATRIAL FIBRILLATION WITH NO OTHER ARRHYTHMIAS 4. BLOOD PRESSURE RESPONSE: ADEQUATE LEFT VENTRICULAR CONTRACTILITY IMPROVED WITH EXERCISE/ MILDLY HYPOKINETIC SEPTUM AT REST SESTAMIBI TO FOLLOW (NUCLEAR SCAN) JAROCHO
--- NOTE | 2018-11-20 09:16 | DS ---
DATE OF SERVICE: 11/13/18 FINAL DIAGNOSIS: ATRIAL FIBRILLATION, NEW ONSET ASTHMATIC BRONCHITIS SHORTNESS OF AIR DILATED HYPERTROPHIC CARDIOMYOPATHY, PER ECHO DIABETES, TYPE 2 A1C 9.2 () HYPERTENSION DYSLIPIDEMIA POLYCYTHEMIA OBESITY OSTEOARTHRITIS, RIGHT KNEE METABOLIC SYNDROME DJD SPINE HISTORY OF PANCREATITIS HYPOGONADISM HERNIA REPAIR BILATERAL CATARACT EXTRACTION, 2016 COLONOSCOPY WITH POLYPECTOMY, 2016 LEFT ORCHIECTOMY LAST VITALS: Temp Pulse Resp BP Pulse Ox 97.9 F 70 20 142/84 H 96 11/13/18 05:00 11/13/18 08:00 11/13/18 05:00 11/13/18 05:00 11/13/18 05:00 DISCHARGE INSTRUCTIONS: DISCHARGE HOME. CONTINUE TO CHECK YOUR BLOOD SUGARS 2-4 TIMES DAILY. MAY RESUME HOME MEDICATION OF METFORMIN TOMORROW MORNING (11-14-2018). AN APPOINTMENT IS SCHEDULED WITH DR. PEGUERO ON November AT 8:45 AM. AN APPOINTMENT IS SCHEDULED WITH DR. SPENCE, CARDIO/ELECTROPHYSIOLOGY ON December AT 1:30 PM. THE OFFICE IS LOCATED AT [facility] IN [place], [place]. CODE STATUS: FULL CODE TAKE THESE MEDICATIONS AT HOME: Amlodipine Besylate (Norvasc) 5 mg PO DAILY [facility] Anastrozole (Arimidex) 1 mg PO MoFr@0900 [facility] Apixaban (Eliquis) 5 mg PO BID Carvedilol (Coreg) 6.25 mg PO BIDWM [facility] Hydrochlorothiazide (Hydrochlorothiazide) 25 mg PO DAILY [facility] Metformin HCl (Glucophage) 1,000 mg PO BIDWM [facility] Non-Formulary Medication (Dapagliflozin Propanediol [Farxiga]) 10 mg PO DAILY [facility] Non-Formulary Medication (Sildenafil Citrate [Sildenafil Citrate]) 100 mg PO DAILY PRN Non-Formulary Medication (Testosterone Cypionate [Testosterone Cypionate]) 300 mg IM EVERY OTHER WEEK [facility] Oxybutynin Chloride (Ditropan) 5 mg PO BID [facility] Prednisone (Prednisone) 10 mg PO DAILYWM [facility] Simvastatin (Zocor) 20 mg PO BEDTIME [facility] Valsartan (Diovan) 320 mg PO DAILY [facility] PRO AIR HFA 2 PUFFS QID PRN WHEEZING/SHORTNESS OF AIR ALLERGIES: No Known Allergies Allergy (Verified 09/14/17 17:53) DISCONTINUED MEDICATIONS: METOPROLOL (LOPRESSOR) ASPIRIN NEW PRESCRIPTIONS: COREG 6.25 MG BID PREDNISONE 10 MG DAILY FOR 5 DAYS PROAIR HFA 2 PUFFS QID PRN WHEEZING/SHORTNESS OF AIR HYDROCHLOROTHIAZIDE 25 MG DAILY ELIQUIS 5 MG BID SMOKING: NOT APPLICABLE DISEASE SPECIFIC EDUCATION: ATRIAL FIBRILLATION LIFESTYLE MODIFICATION; INCLUDING WEIGHT LOSS, EXERCISE INCLUDING CARDIO, BLOOD SUGARS, DIET NEW MEDICATIONS; INCLUDING ELIQUIS AND POSSIBLE SIDE EFFECT OF BLEEDING APPOINTMENTS DIET: HEART HEALTHY, CONSISTENT CARBOHYDRATES ACTIVITY: GRADUALLY RESUME ACTIVITY TO INCLUDE GYM/CARDIO 4-5 TIMES PER WEEK HOSPITAL COURSE: The patient was hospitalized with shortness of breath. The patient's shortness of breath with combination of asthmatic bronchitis and possibly early CHF. The patient was given steroids. His condition improved remarkably within 24 hours. The patient has now new atrial fibrillation. The patient has dilated cardiomyopathy with LA cavity approximately 5cm with LV cavity more than 6cm, ejection fraction 45%. The patient was continued on Diovan, Norvasc and Lopressor was changed to Coreg. The patient's heart rate has stayed 50-70 per minute with atrial fibrillation. The patient was put on Eliquis. he monitored for 3 days. The patient was also tried on Amiodarone which failed to convert him to sinus rhythm. The patient has now been referred to Test Deck Supervisor for possibility cardioversion and or ablation therapy. He has been thoroughly explained about atrial fibrillation and it's complication. His CHADS 2 VASC score is 3. He has been explained about Eliquis and it's side effects in a way of GI bleeding and intracranial bleeding. He is advised not to mix Eliquis with any nonsteroidal anti-inflammatory. He is to be seen on followup on Sunday morning. He is also advised to lose weight, his BMI is more than 30. He is advised to exercise regularly. Bring A1c down to 6.5 to 7. Stress sestamibi that is nuclear scan with the stress test was negative for ischemia. His exercise tolerance is acceptable. CONDITION: Stable. TIME SPENT: More than 60 minutes. MTDD
--- NOTE | 2018-11-20 09:17 | PN ---
11/11/18: Level 5 11/12/18: Extensive 11/13/18: D as in discharge MTDD
--- NOTE | 2018-11-20 09:56 | PN ---
DATE OF SERVICE: 11/13/18 DISCHARGE NOTE SUBJECTIVE: 63 year old white male hospitalized with asthmatic bronchitis and possibility of LVF with new onset atrial fibrillation. The patient is feeling better. The patient is feeling better. REVIEW OF SYSTEMS: CONSTITUTIONAL: No night sweats. No fatigue, malaise, lethargy. No fever or chills. HEENT: Eyes: No visual changes. No eye pain. No eye discharge. ENT: No runny nose. No epistaxis. No sinus pain. No sore throat. No odynophagia. No congestion. RESPIRATORY: No cough, no congestion. No hemoptysis. No shortness of breath. CARDIOVASCULAR: No angina symptoms. No CHF symptoms. No atypical chest pain for CAD. No palpitations. No PND. No orthopnea. GASTROINTESTINAL: No abdominal pain. No nausea or vomiting. No diarrhea or constipation. No hematemesis. No hematochezia. GENITOURINARY: No urgency. No frequency. No dysuria. No hematuria. No obstructive symptoms. No discharge. No pain. No significant abnormal bleeding. MUSCULOSKELETAL: No musculoskeletal pain; no joint swelling. NEUROLOGICAL: No headache. No neck pain. No syncope. No seizures. No dizziness. PSYCHIATRIC: Not anxious. No depression. No suicidal thoughts. No homicidal thoughts. SKIN: No rash. No lesions. No wounds. ENDOCRINE: No unexplained weight loss. No weight gain. HEMATOLOGIC/LYMPHATIC: No anemia. No purpura. No petechiae. No prolonged or excessive bleeding. No palpable lymph nodes. PHYSICAL EXAMINATION: GENERAL: The patient is , lying/sitting in bed in no distress. VITAL SIGNS: Temperature 97.9,pulse 70, respiratory rate 20, blood 142/84, pulse ox 96%. HEENT: Head normocephalic, atraumatic. Eyes: Extraocular muscles are intact. Pupils are equal, round and reactive to light and accommodation. Ears: No lesions. Nose appeared normal. Throat: No exudate or erythema. NECK: Supple. No JVP, no carotid bruit. No lymphadenopathy or thyromegaly. LUNGS: Clear to auscultation. Percussion note normal. Chest symmetrical. HEART: S1, S2, no S3. No murmurs. No cyanosis or clubbing. No ascites. Pulses: Dorsalis pedis and posterior tibial pulses +1 to +2 bilaterally. ABDOMEN: Soft. Nontender. Bowel sounds active. No CVA tenderness. No mass felt. EXTREMITIES: No edema. Full range of motion of all extremities, equal. NEUROLOGIC: No focal deficit. Cranial nerves II through XII are grossly intact. No headache, no double vision or headache. SKIN: Not dry. Intact. Turgor - normal. LYMPHATIC: No palpable lymph nodes/no lymphedema. MUSCULOSKELETAL: Normal joints with no swelling. Muscle tone is normal. ASSESSMENT: 1. Asthmatic bronchitis, resolved PLAN: 1. ProAir HFA two puffs four times a day 2. Prednisone 10mg one a day for 5 days 3. The patient is advised to continue on all the rest of his medications as before CONDITION: Stable. The patient was explained about echo findings with dilated hypertrophic cardiomyopathy with ejection fraction of 45%. Agreed to cosmetic assembler TIME SPENT: More than 30 minutes. Plan and coordination of the patient's care discussed in the presence of nurse. JAROCHO
== END 2018-11-13 14:49 | disposition home or self-care (01) | DRG 202 ==
LOC: MEDSURG B 12:40
PROVIDERS: ADMIT Internal Medicine; ATTEND Internal Medicine
DX: J45.909 Unspecified asthma, uncomplicated (principal); I42.2 Other hypertrophic cardiomyopathy; I48.91 Unspecified atrial fibrillation; I10 Essential (primary) hypertension; E11.9 Type 2 diabetes mellitus without complications; E78.5 Hyperlipidemia, unspecified; E66.9 Obesity, unspecified; E88.81 Metabolic syndrome and other insulin resistance; D75.1 Secondary polycythemia; M17.11 Unilateral primary osteoarthritis, right knee; M47.9 Spondylosis, unspecified; R06.2 Wheezing; Z68.34 Body mass index [BMI] 34.0-34.9, adult
CPT/HCPCS: 36415; 80053; 81001; 82550; 82553; 82962; 83880; 84439; 84443; 84484; 85025; 85379; 93005; 93010; 94640